=== PATIENT | male | born 1945 | race Caucasian/White ===

== ENCOUNTER 2020-11-13 10:37 | Inpatient (IN) | payer MEDICARE, BC ==
[~2020-11-13] VITALS: Ht 172.7 cm; Wt 77.2 kg
--- NOTE | 2020-11-13 10:54 | ED Neurological Problem ---
General Stated Complaint: POSS STROKE Source: patient, spouse Exam Limitations: no limitations History of Present Illness Date Seen by Provider: Nov 13, 2020 Time Seen by Provider: 10:39 Initial Comments Patient presents to the ER by private conveyance with his and chief complaint that he woke up this morning around 530 and was having some weakness and difficulty getting his right side of his body upper and lower extremity to work. No slurred speech, confusion. No recent illness, chest pain shortness of air. No history of heart attacks, peripheral arterial disease, stroke. He denies hypertension, hyperlipidemia or diabetes. He does not follow with a primary care provider. He is never had any problems and was supposed to switch over to Dr. Westfall after Juhi novoa and Blayne Franklin however he never went to follow-up with him. He does not take any medications supplements or vitamins. Allergies and Home Medications Allergies Coded Allergies: hydrocodone (Verified Adverse Reaction, Unknown, nausea, 11/13/20) Patient Home Medication List Home Medication List Reviewed: Yes Review of Systems Review of Systems Constitutional: No chills, No diaphoresis, No fever; weakness Eyes: Denies Blindness, Denies Blurred Vision Ears, Nose, Mouth, Throat: denies ear pain, denies ear discharge Respiratory: No cough, No short of breath Cardiovascular: No edema, No Hx of Intervention, No syncope, No vascular heart diseas Gastrointestinal: No abdominal pain, No nausea, No vomiting Genitourinary: No discharge, No dysuria Musculoskeletal: No back pain, No joint pain Skin: No change in color, No dryness Psychiatric/Neurological: Denies Anxiety, Denies Depressed All Other Systems Reviewed Negative Unless Noted: Yes Past Vomgoyp-Nsymfx-Tzlpqs Hx Patient Social History Alcohol Use: Denies Use Smoking Status: Never a Smoker Physical Exam Vital Signs Vital Signs - First Documented 11/13/20 10:53 Temp 36.6 Pulse 73 Resp 16 B/P (MAP) 163/95 (117) Pulse Ox 94 Capillary Refill : Height, Weight, BMI Height: '" Weight: lbs. oz. kg; BMI Method: General Appearance: WD/WN, mild distress HEENT: PERRL/EOMI, normal ENT inspection, TMs normal, pharynx normal Neck: non-tender, full range of motion, supple, normal inspection Respiratory: chest non-tender, lungs clear, normal breath sounds, no respiratory distress, no accessory muscle use Cardiovascular: normal peripheral pulses, regular rate, rhythm, no edema, no murmur Peripheral Pulses: 2+ Dorsalis Pedis (R), 2+ Left Dors-Pedis (L), 2+ Radial Pul ses (R), 2+ Radial Pulses (L) Gastrointestinal: normal bowel sounds, non tender, soft Extremities: normal range of motion, non-tender, normal inspection, no pedal edema, no calf tenderness, normal capillary refill Neurologic/Psychiatric: alert, normal mood/affect, oriented x 3, other (Weakness right upper and lower extremity 4 out of 5 strength compared to left upper and lower extremity. Subtle left facial droop around the lips on smile) Motor/Sensory: no sensory deficit Skin: normal color, warm/dry Stroke Onset of Symptoms Date of Onset of Symptoms: Nov 12, 2020 Time of Symptom Onset: 21:00 Onset of Symptoms: Yes Symptoms onset unknown: Yes NIH Stroke Scale Assessment Select: Initial Level of Consciousness: 0=Alert (0), Level of Consciousness- Questions: 0=Answers both month/age (0), LOC Commands: 0=Performs both tasks (0), Gaze: Normal (0), Visual Kauffman: 0=No visual loss (0), Facial Movement (Facial Paresis): 1=Minor paralysis (1), Motor Function-Arms Right: 1=Drift (1), Motor Function-Arms Left: 0=No drift (0), Motor Function-Legs Right: 1=Drift (1), Motor Function-Legs Left: 0=No drift (0), Limb Ataxia: 0=Absent (0), Sensory: 0=Normal:no loss (0), Best Language: 0=No aphasia (0), Dysarthria: 0=Normal (0), Extinction & Inattention: 0=No abnormality (0), Total: 3 Stroke Thrombolytic Exclusion Age 18 or Over: Yes History of CVA: No Uncontrolled Coagulation Defec: No Intracranial Hemorrhage: No Severe Hypertension: No GI or Bleed: No Subarachnoid Hemorrhage: No Intracranial Neoplasm/Aneurysm: No Oral Anticoagulants: No Surgery or Trauma: No Puncture of Non-Compressible V: No Recent CPR: No Diabetic Hemorrhagic Retinopat: No Organ Biopsy: No Recent Obstetric Delivery: No Glucose: No (113) Significant Hepatic Dysfunctio: No NIH Stoke Scale >22: No Bacterial Endocarditis: No Pericarditis: No Improving Symptoms: No Platelets: No TPA Contraindication: No Progress/Results/Core Measures Results/Orders Lab Results Laboratory Tests Test 11/13/20 10:49 11/13/20 10:52 Range/Units Glucometer 113 H 70-110 MG/DL White Blood Count 7.4 4.3-11.0 10^3/uL Red Blood Count 3.69 L 4.30-5.52 10^6/uL Hemoglobin 14.3 13.3-17.7 g/dL Hematocrit 40 40-54 % Mean Corpuscular Volume 108 H 80-99 fL Mean Corpuscular Hemoglobin 39 H 25-34 pg Mean Corpuscular Hemoglobin Concent 36 32-36 g/dL Red Cell Distribution Width 13.6 10.0-14.5 % Platelet Count 244 130-400 10^3/uL Mean Platelet Volume 9.5 9.0-12.2 fL Immature Granulocyte % (Auto) 0 % Neutrophils (%) (Auto) 58 42-75 % Lymphocytes (%) (Auto) 33 12-44 % Monocytes (%) (Auto) 7 0-12 % Eosinophils (%) (Auto) 2 0-10 % Basophils (%) (Auto) 0 0-10 % Neutrophils # (Auto) 4.3 1.8-7.8 10^3/uL Lymphocytes # (Auto) 2.4 1.0-4.0 10^3/uL Monocytes # (Auto) 0.5 0.0-1.0 10^3/uL Eosinophils # (Auto) 0.2 0.0-0.3 10^3/uL Basophils # (Auto) 0.0 0.0-0.1 10^3/uL Immature Granulocyte # (Auto) 0.0 0.0-0.1 10^3/uL Prothrombin Time 14.4 12.2-14.7 SEC INR Comment 1.1 0.8-1.4 Activated Partial Thromboplast Time 34 24-35 SEC D-Dimer 0.81 H 0.00-0.49 UG/ML Sodium Level 138 135-145 MMOL/L Potassium Level 5.0 3.6-5.0 MMOL/L Chloride Level 106 98-107 MMOL/L Carbon Dioxide Level 22 21-32 MMOL/L Anion Gap 10 5-14 MMOL/L Blood Urea Nitrogen 15 7-18 MG/DL Creatinine 0.91 0.60-1.30 MG/DL Estimat Glomerular Filtration Rate > 60 BUN/Creatinine Ratio 16 Glucose Level 116 H 70-105 MG/DL Calcium Level 8.5 8.5-10.1 MG/DL Corrected Calcium 8.3 L 8.5-10.1 MG/DL Total Bilirubin 1.1 H 0.1-1.0 MG/DL Aspartate Amino Transf (AST/SGOT) 40 H 5-34 U/L Alanine Aminotransferase (ALT/SGPT) 21 0-55 U/L Alkaline Phosphatase 40 40-136 U/L Troponin I < 0.028 <0.028 NG/ML Total Protein 7.6 6.4-8.2 GM/DL Albumin 4.2 3.2-4.5 GM/DL My Orders Orders - AMAIRANI VEGA Cbc With Automated Diff (11/13/20 10:47) Protime With Inr (11/13/20 10:47) Partial Thromboplastin Time (11/13/20 10:47) Comprehensive Metabolic Panel (11/13/20 10:47) Fibrin Degradation Products (11/13/20 10:47) Troponin I (11/13/20 10:47) Ua Culture If Indicated (11/13/20 10:47) Chest 1 View, Ap/Pa Only (11/13/20 10:47) Ekg Tracing (11/13/20 10:47) Nothing By Mouth (11/13/20 Lunch) Accucheck Stat ONCE (11/13/20 10:47) Ed Iv/Invasive Line Start (11/13/20 10:47) Ed Iv/Invasive Line Start (11/13/20 10:47) Vital Signs Stroke Patient Q15M (11/13/20 10:47) Ct Head Wo-R/O Stroke (11/13/20 10:47) O2 (11/13/20 10:47) Intake & Output 06,14,22 (11/13/20 10:47) Monitor-Rhythm Ecg Trace Only (11/13/20 10:47) Dysphagia Screening Tool (11/13/20 10:47) Post Thrombolytic Adminstratio (11/13/20 10:47) Lipid Panel (11/14/20 06:00) Ct Angio Head/Neck (11/13/20 11:30) Iohexol Injection (Omnipaque 350 Mg/Ml 1 (11/13/20 11:45) Received Contrast (Hold Metformin- Contr (11/13/20 11:45) Sodium Chloride Flush (Catheter Flush Sy (11/13/20 11:45) Ns (Ivpb) (Sodium Chloride 0.9% Ivpb Bag (11/13/20 11:45) Aspirin Chewable Tablet (Baby Aspirin Ch (11/13/20 13:15) Clopidogrel Tablet (Plavix Tablet) (11/13/20 13:15) Medications Given in ED Current Medications Medications Dose Ordered Sig/Zak Route Start Time Stop Time Status Last Admin Dose Admin Iohexol 100 ml ONCE ONCE IV 11/13/20 11:45 11/13/20 11:46 DC 11/13/20 11:50 75 ML Sodium Chloride 10 ml NEEDED PRN IV 11/13/20 11:45 11/13/20 11:51 10 ML Sodium Chloride 100 ml ONCE ONCE IV 11/13/20 11:45 11/13/20 11:46 DC 11/13/20 11:50 80 ML Vital Signs/I&O 11/13/20 10:53 Temp 36.6 Pulse 73 Resp 16 B/P (MAP) 163/95 (117) Pulse Ox 94 Progress Progress Note : Time: 10:55 Progress Note Blood glucose 113. Concern for ischemic stroke. We will send him down for a CT without IV contrast. Initial ECG Impression Date: Nov 13, 2020 Initial ECG Impression Time: 10:49 Initial ECG Rate: 73 Initial ECG Rhythm: Normal Sinus Initial ECG Intervals: Normal Initial ECG Impression: Normal Initial ECG Comparisson: No Previous ECG Available Comment Normal sinus rhythm without clinically relevant ST elevation or depression. Diagnostic Imaging Diagonstic Imaging: Xray Plain Films/CT/US/NM/MRI: chest Comments [facility], [place] NAME: SHAD DOWNEY MED REC#: [id number] PT STATUS: REG ER : 1945 PHYSICIAN: AMAIRANI VEGA MD ADMIT DATE: 11/13/20/ER Draft Date of Exam:11/13/20 CHEST 1 VIEW, AP/PA ONLY Indication: Dyspnea with new onset left-sided weakness. Comparison: None. Discussion: Single portable upright view of the chest was obtained. Atelectasis noted within the right lung base. Normal heart size. No consolidation, pleural fluid, or pneumothorax. No osseous abnormality. Impression: 1. Negative portable chest. Dictated on workstation # [id number] Dict: 11/13/20 1109 Trans: 11/13/20 1111 [facility] [id number] Interpreted by: VEE JUSTIN MD Electronically signed by: Reviewed: Reviewed by Pr Diagonstic Imaging: CT Plain Films/CT/US/NM/MRI: head Comments NAME: SHAD DOWNEY [facility] REC#: [id number] PT STATUS: REG ER : 1945 PHYSICIAN: AMAIRANI VEGA MD ADMIT DATE: 11/13/20/ER Draft Date of Exam:11/13/20 CT HEAD WO-R/O STROKE PROCEDURE: CT head wo r/o stroke. TECHNIQUE: Multiple contiguous axial images were obtained through the brain without the use of intravenous contrast. Auto Exposure Controls were utilized during the CT exam to meet ALARA standards for radiation dose reduction. Indication: New onset left-sided weakness, altered mental status. Comparison: None. Discussion: No intracranial hemorrhage, mass, midline shift, or hydrocephalus. The ventricles and sulci are normal size and configuration for age. The visualized orbits, mastoid air cells, and calvarium are unremarkable. Mucosal thickening noted within the sinuses consistent with chronic sinusitis. No air-fluid level. Impression: 1. No acute intracranial abnormality identified. Dictated on workstation # [id number] Dict: 11/13/20 1105 Trans: 11/13/20 1108 [facility] [id number] Interpreted by: VEE JUSTIN MD Electronically signed by: Reviewed: Reviewed by Pr Diagonstic Imaging: CT (angiogram) Plain Films/CT/US/NM/MRI: head (neck) Comments [facility], [place] NAME: NASREEN,SHAD Brown [facility] REC#: [id number] PT STATUS: REG ER : 1945 PHYSICIAN: AMAIRANI VEGA MD ADMIT DATE: 11/13/20/ER Draft Date of Exam:11/13/20 CT ANGIO HEAD/NECK PROCEDURE: CT angiography of the head and CT angiography of the neck with and without contrast. TECHNIQUE: Contiguous noncontrast images were obtained from the skull base through the vertex. After intravenous contrast administration, helical CT angiography of the neck was performed. Source data was reformatted into 3D MIP projections. Delayed post contrast acquisition was also obtained. Auto Exposure Controls were utilized during the CT exam to meet ALARA standards for radiation dose reduction. Indication: New onset right-sided weakness, altered mental status. Comparison: Noncontrasted CT earlier today. Discussion: CTA head: The right internal and external carotid artery is significantly larger than the left. The left A1 segment is markedly diminutive though does appear to be present though is poorly evaluated given its very small size. Mild intracranial arterial calcifications are noted with no high-grade stenosis identified. No major vessel cut off, aneurysm, or vascular malformation. Visualized venous structures are unremarkable. CTA neck: The arch has conventional branch configuration. The vertebral arteries are left dominant. The carotid arteries bifurcate midneck. The right carotid bifurcation contains mild atherosclerotic plaque with less than 50% stenosis identified within the origin of the right internal carotid artery. The left internal carotid artery is again diminutive which is likely secondary to focal atherosclerotic plaque at the origin contributing to at least 80% stenosis. The common carotid arteries are otherwise patent. The lung apices are unremarkable. The soft tissues of the neck are unremarkable. Shotty reactive-appearing adenopathy is present bilaterally. No acute osseous abnormality. Impression: 1. 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 The remainder of the left internal carotid artery is diminutive as compared to the right. 2. No intracranial major vessel cut off, aneurysm, or vascular malformation. Dictated on workstation # [id number] Dict: 11/13/20 1202 Trans: 11/13/20 1217 [facility] [id number] Interpreted by: VEE JUSTIN MD Electronically signed by: Reviewed: Reviewed by Me Consults : Consults Notes 1120: Dr Subramanian: Neurology on-call for stroke at [facility]. He recommends the patient is outside the window for any benefit from TPA. He would however get a CT angiogram of the head and neck and if it is clear then continue to work-up locally for ischemic stroke. 1255: Discussed the 80% atherosclerotic stenosis in the left ICA with Dr. Quintana and he does not feel that anything specifically need to be done right now but he does need to follow-up with someone for potentially CEA in the next week or 2. Departure Communication (Admissions) Time/Spoke to Admitting Phy: 12:45 Discussed the case with Dr. Wadsworth and she agrees with admission for CVA work-up. Impression Primary Impression: CVA (cerebral vascular accident) Qualified Codes: I63.9 - Cerebral infarction, unspecified Disposition: ADMITTED INPATIENT Condition: Stable Admissions Decision to Admit Reason: Admit from ER (General) Decision to Admit/Date: Nov 13, 2020 Time/Decision to Admit Time: 12:15 Departure-Patient Inst. Referrals: NO,LOCAL PHYSICIAN (PCP/Family) Primary Care Physician AMAIRANI VEGA Nov 13, 2020 10:53
[2020-11-13 11:00] LABS: BASOPHILS % (AUTO) 0 % (0-10); EOSINOPHILS # (AUTO) 0.2 10^3/uL (0.0-0.3); EOSINOPHILS % (AUTO) 2 % (0-10); HEMATOCRIT 40 % (40-54); HEMOGLOBIN 14.3 g/dL (13.3-17.7); LYMPHOCYTES # (AUTO) 2.4 10^3/uL (1.0-4.0); LYMPHOCYTES % (AUTO) 33 % (12-44); MEAN CORPUSCULAR HEMOGLOBIN 39 pg (25-34); MEAN CORPUSCULAR HGB CONC 36 g/dL (32-36); MEAN CORPUSCULAR VOLUME 108 fL (80-99); MEAN PLATELET VOLUME 9.5 fL (9.0-12.2); MONOCYTES # (AUTO) 0.5 10^3/uL (0.0-1.0); MONOCYTES % (AUTO) 7 % (0-12); NEUTROPHILS # (AUTO) 4.3 10^3/uL (1.8-7.8); NEUTROPHILS % (AUTO) 58 % (42-75); PLATELET COUNT 244 10^3/uL (130-400); WHITE BLOOD COUNT 7.4 10^3/uL (4.3-11.0)
[2020-11-13 11:08] LABS: ALBUMIN 4.2 GM/DL (3.2-4.5); CHLORIDE 106 MMOL/L (98-107); SODIUM 138 MMOL/L (135-145)
--- NOTE | 2020-11-13 11:08 | Diagnostic Imaging Report ---
PROCEDURE: CT head wo r/o stroke. TECHNIQUE: Multiple contiguous axial images were obtained through the brain without the use of intravenous contrast. Auto Exposure Controls were utilized during the CT exam to meet ALARA standards for radiation dose reduction. Indication: New onset left-sided weakness, altered mental status. Comparison: None. Discussion: No intracranial hemorrhage, mass, midline shift, or hydrocephalus. The ventricles and sulci are normal size and configuration for age. The visualized orbits, mastoid air cells, and calvarium are unremarkable. Mucosal thickening noted within the sinuses consistent with chronic sinusitis. No air-fluid level. Impression: 1. No acute intracranial abnormality identified. Dictated by: Dictated on workstation # [id number]
[2020-11-13 11:10] LABS: CALCIUM 8.5 MG/DL (8.5-10.1)
[2020-11-13 11:11] LABS: GLUCOSE 116 MG/DL (70-105); TOTAL PROTEIN 7.6 GM/DL (6.4-8.2)
--- NOTE | 2020-11-13 11:11 | Diagnostic Imaging Report ---
Indication: Dyspnea with new onset left-sided weakness. Comparison: None. Discussion: Single portable upright view of the chest was obtained. Atelectasis noted within the right lung base. Normal heart size. No consolidation, pleural fluid, or pneumothorax. No osseous abnormality. Impression: 1. Negative portable chest. Dictated by: Dictated on workstation # [id number]
[2020-11-13 11:12] LABS: BILIRUBIN,TOTAL 1.1 MG/DL (0.1-1.0); CARBON DIOXIDE 22 MMOL/L (21-32)
[2020-11-13 11:14] LABS: ALKALINE PHOSPHATASE 40 U/L (40-136); CREATININE SERUM 0.91 MG/DL (0.60-1.30); GFR ESTIMATED > 60
[2020-11-13 11:15] LABS: BUN/CREATININE RATIO 16
[2020-11-13 11:17] LABS: ALANINE AMINOTRANSFERASE 21 U/L (0-55)
[2020-11-13] MEDS ORDERED: IOHEXOL 350 MG/ML 100 ML (OMNIPAQUE 350) VIAL IV ONE (11:45)
[2020-11-13] MEDS ORDERED: NS 100 ML (IVPB) BAG IV ONE (11:45)
[2020-11-13] MEDS ORDERED: HOLD METFORMIN - RECEIVED CONTRAST 20 ML VIAL IV SCH (11:45)
[2020-11-13] MEDS ORDERED: CATHETER FLUSH 10 ML SYR IV PRN (11:45)
[2020-11-13 11:58] LABS: FIBRIN DEGRADATION PRODUCTS 0.81 UG/ML (0.00-0.49); INR 1.1 (0.8-1.4); PROTHROMBIN TIME PATIENT 14.4 SEC (12.2-14.7)
--- NOTE | 2020-11-13 12:17 | Diagnostic Imaging Report ---
PROCEDURE: CT angiography of the head and CT angiography of the neck with and without contrast. TECHNIQUE: Contiguous noncontrast images were obtained from the skull base through the vertex. After intravenous contrast administration, helical CT angiography of the neck was performed. Source data was reformatted into 3D MIP projections. Delayed post contrast acquisition was also obtained. Auto Exposure Controls were utilized during the CT exam to meet ALARA standards for radiation dose reduction. Indication: New onset right-sided weakness, altered mental status. Comparison: Noncontrasted CT earlier today. Discussion: CTA head: The right internal and external carotid artery is significantly larger than the left. The left A1 segment is markedly diminutive though does appear to be present though is poorly evaluated given its very small size. Mild intracranial arterial calcifications are noted with no high-grade stenosis identified. No major vessel cut off, aneurysm, or vascular malformation. Visualized venous structures are unremarkable. CTA neck: The arch has conventional branch configuration. The vertebral arteries are left dominant. The carotid arteries bifurcate midneck. The right carotid bifurcation contains mild atherosclerotic plaque with less than 50% stenosis identified within the origin of the right internal carotid artery. The left internal carotid artery is again diminutive which is likely secondary to focal atherosclerotic plaque at the origin contributing to at least 80% stenosis. The common carotid arteries are otherwise patent. The lung apices are unremarkable. The soft tissues of the neck are unremarkable. Shotty reactive-appearing adenopathy is present bilaterally. No acute osseous abnormality. Impression: 1. 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 The remainder of the left internal carotid artery is diminutive as compared to the right. 2. No intracranial major vessel cut off, aneurysm, or vascular malformation. Dictated by: Dictated on workstation # [id number]
[2020-11-13] MEDS ORDERED: ASPIRIN 81 MG CHEW (CHILDREN'S ASA) PO ONE (13:15)
[2020-11-13] MEDS ORDERED: CLOPIDOGREL 300 MG (PLAVIX) TABLET PO ONE (13:15)
--- NOTE | 2020-11-13 13:32 | History & Physical-Hospitalist ---
CELYSANTINO, 11/13/20 1331: History of Present Illness HPI/Chief Complaint Mr. Ledbetter is a 75-year-old male who presented to the [facility] ED for right- sided weakness. At 0530 this am, he noted that his right-side would not "listen" to instruction. His said he had a "different gait" this morning and was falling into the cruz of their home. Last known well time was the night prior before bed. He also admits to extreme sleepiness and headache. He denies any chest pain, shortness of breath, blurred vision, difficulty swallowing. He does admit to nausea without vomiting. also states he has been having increasing number of headaches recently. Source: patient, family Date Seen 11/13/20 Time Seen by a Provider: 13:00 Attending Physician PCP No,Local Physician Referring Physician Date of Admission Home Medications & Allergies Home Medications Reviewed patient Home Medication Reconciliation performed by pharmacy medication reconciliations organic extractions technician and/or nursing. Patients Allergies have been reviewed. Allergies Allergies Coded Allergies hydrocodone (Verified Adverse Reaction, Unknown, nausea, 11/13/20) Past Xyybmbi-Zqshhw-Izaoqj Hx Patient Social History Marrital Status: Alcohol Use: Denies Use Recreational Drug Use: No Smoking Status: Never a Smoker Recent Foreign Travel: No Contact w/other who traveled: No Recent Hopitalizations: No Recent Infectious Disease Expo: No Seasonal Allergies Seasonal Allergies: No Past Medical History Surgeries: Orthopedic (L hand), Tonsillectomy Neurological: Headaches /Migraines Cancer: Skin Did You Recieve Any Treatments: Yes What Type of Treatment Did You: Surgical Intervention History of Blood Disorders: No Family History Cancer, CVA Review of Systems Constitutional: diaphoresis, weakness EENTM: dental problems ( states halitosis); No blurred vision Respiratory: No cough, No short of breath Cardiovascular: No chest pain, No palpitations Gastrointestinal: No abdominal pain; nausea Genitourinary: No dysuria, No hematuria Musculoskeletal: No joint pain, No muscle pain Skin: No dryness, No lesions Psychiatric/Neurological: Headache; Denies Tremors Physical Exam Physical Exam Vital Signs Vital Signs - First Documented 11/13/20 11/13/20 10:53 15:50 Temp 36.6 Pulse 73 Resp 16 B/P (MAP) 163/95 (117) Pulse Ox 94 O2 Delivery Room Air Capillary Refill : Less Than 3 Seconds Height, Weight, BMI Height: '" Weight: lbs. oz. kg; 26.00 BMI Method: General Appearance: No Apparent Distress, WD/WN HEENT: PERRL/EOMI Neck: Non Tender, Supple Respiratory: Lungs Clear, Normal Breath Sounds Cardiovascular: Regular Rate, Rhythm, No Murmur Gastrointestinal: Normal Bowel Sounds, Non Tender, Soft Extremity: Normal Capillary Refill, Pedal Edema Neurologic/Psychiatric: Alert, Oriented x3, senior linux unix engineer II-XII Norm as Tested; No Faci al Droop; Motor Weakness (+3/5 right-sided muscle weakness; +5/5 left-sided); No Sensory Deficit Skin: Normal Color, Warm/Dry Lymphatic: No Adenopathy Results Results/Procedures Labs Laboratory Tests 11/13/20 10:52 Patient resulted labs reviewed. Imaging: Reviewed Imaging Report Assessment/Plan Admission Diagnosis Cerebrovascular accident Right-sided weakness * CT head revealed no acute pathology * CTA of head/neck revealed at least 80% stenosis of left internal carotid * Per ED note, neurology at stated too late for tPA; no intervention at this time but to follow-up with someone for potentially CEA in the next week or 2 * EKG showed NSR without ST changes * Order MRI brain, echo * D-dimer 0.81 * Lipid panel pending - start atorvastatin 80mg * PT/OT * Start aspirin and Plavix * Permissive hypertension following CVA Diet: npo, pending swallow study PPx: lovenox Dispo: likely >2 midnights for therapies; social work consult for rehab pl acement if necessary Clinical Quality Measures Stroke: Date of last known well: Nov 12, 2020 Time of last known well: 21:00 Symptoms onset unknown: Yes BARBIE WADSWORTH MD 11/13/20 1408: Past Daozksl-Nfvmal-Vyzwan Hx Past Med/Social Hx: Reviewed Nursing Past Med/Soc Hx Assessment/Plan Admission Diagnosis Patient presented with right sided weakness that he woke up with this morning. Has significant deficits in right side with both weakness and coordination. No previous history of stroke, HTN, HLD, or CAD but has not see a physician in a couple of years. He was outside of the window for TPA upon presentation and CTA was negative for large vessel occlusion. Dr Burciaga in the ER discussed with [facility] Stroke Neruology who recommended conservative management but outpatient follow up with vascular surgery for 80% left carotid stenosis. Will check lipid panel in the AM and start on antiplatelet therapy. PT/OT consulted. May need IRU upon discharge pending course. Admission Status: Inpatient Order (span 2 midnights) Reason for Inpatient Admission: see above Diagnosis/Problems Diagnosis/Problems (1) CVA (cerebral vascular accident) Status: Acute Qualifiers: CVA mechanism: unspecified Qualified Codes: I63.9 - Cerebral infarction, unspecified (2) Elevated blood pressure reading Supervisory-Addendum Brief Verification & Attestation Participated in pt care: history, MDM, physical Personally performed: exam, history, MDM, supervision of care Care discussed with: Medical Student Procedures: n/a Results interpretation: Verified all documentation Verification and Attestation of Medical Student E/M Service A medical student performed and documented this service in my presence. I reviewed and verified all information documented by the medical student and made modifications to such information, when appropriate. I personally performed the physical exam and medical decision making. Barbie Wadsworth, Nov 13, 2020,14:03 SANTINO TA, Nov 13, 2020 13:31 BARBIE WADSWORTH MD Nov 13, 2020 14:08
[2020-11-13] MEDS ORDERED: ACETAMINOPHEN 325 MG TABLET PO PRN (15:00)
[2020-11-13] MEDS ORDERED: ONDANSETRON 4 MG/2 ML (SDV) Z0FRAN IVP PRN (15:00)
[2020-11-13 15:50] VITALS: BP 142/82
[2020-11-13 20:00] VITALS: BP 123/72
[2020-11-13 22:15] LABS: BILIRUBIN,URINE NEGATIVE (NEGATIVE); CLARITY,URINE SL CLOUDY; COLOR,URINE YELLOW; GLUCOSE, URINE (UA) NEGATIVE (NEGATIVE); KETONES,URINE NEGATIVE (NEGATIVE); LEUKOCYTE ESTERASE ,URINE NEGATIVE (NEGATIVE); NITRITE,URINE NEGATIVE (NEGATIVE); PH,URINE 7.5 (5-9); PROTEIN,URINE NEGATIVE (NEGATIVE)
[2020-11-13 22:22] LABS: BACTERIA,URINE NEGATIVE /HPF; SQUAMOUS EPITHELIAL CELL,UR RARE /HPF
[2020-11-14] VITALS (7 sets, daily range): BP systolic 105–137; BP diastolic 55–78
[2020-11-14 05:46] LABS: TRIGLYCERIDES 72 MG/DL (<150); VLDL CHOLESTEROL 14 MG/DL (5-40)
[2020-11-14 05:51] LABS: CHOLESTEROL 161 MG/DL (< 200); HDL CHOLESTEROL 33 MG/DL (40-60)
--- NOTE | 2020-11-14 09:40 | Progress Note - Hospitalist ---
CELYSANTINO, 11/14/20 0940: Subjective HPI/CC On Admission Date Seen by Provider: Nov 14, 2020 Time Seen by Provider: 10:09 Mr. Ledbetter is a 75-year-old male who presented to the [facility] ED for right- sided weakness. At 0530 this am, he noted that his right-side would not "listen" to instruction. His said he had a "different gait" this morning and was falling into the cruz of their home. Last known well time was the night prior before bed. He also admits to extreme sleepiness and headache. He denies any chest pain, shortness of breath, blurred vision, difficulty swallowing. He does admit to nausea without vomiting. also states he has been having increasing number of headaches recently. Subjective/Events-last exam Mr. Ledbetter was seen in f/u for right-sided weakness and likely CVA. Eating breakfast during interview. States he is still feeling pretty sleepy and does not think his right-sided weakness is better. However, has noticed mild improvement. Echo completed today. Pt and family had questions regarding MRI and further testing for tomorrow. Objective Exam Vital Signs Vital Signs Date Time Temp Pulse Resp B/P (MAP) Pulse Ox O2 Delivery O2 Flow Rate FiO2 11/14/20 08:00 Room Air 11/14/20 08:00 35.4 70 16 105/69 (81) 93 Capillary Refill : Less Than 3 Seconds General Appearance: No Apparent Distress, WD/WN HEENT: PERRL/EOMI Neck: Non Tender, Supple Respiratory: Lungs Clear, Normal Breath Sounds Cardiovascular: Regular Rate, Rhythm, No Murmur Gastrointestinal: Normal Bowel Sounds, Non Tender, Soft Extremity: Normal Capillary Refill, No Calf Tenderness Neurologic/Psychiatric: Alert, Oriented x3, sieve grader tender II-XII Norm as Tested, Abnormal Cerebellar Tests (improved lxywno-ym-jevh testing on right side); No Motor Weakness, No Sensory Deficit Skin: Normal Color, Warm/Dry Lymphatic: No Adenopathy Results/Procedures Lab Laboratory Tests 11/13/20 10:52 Patient resulted labs reviewed. Imaging: Reviewed Imaging Report Assessment/Plan Assessment and Plan Assess & Plan/Chief Complaint Cerebrovascular accident Right-sided weakness * CT head revealed no acute pathology * CTA of head/neck revealed at least 80% stenosis of left internal carotid * Per ED note, neurology at stated too late for tPA; no intervention at this time but to follow-up with someone for potentially CEA in the next week or 2 * EKG showed NSR without ST changes * Order MRI brain for tomorrow, 11/15 * Echo completed, revealed EF 70-75%, abnormal LV relaxation (grade 1 diastolic dysfunction) * Lipid panel normal except for low HDL at 33 * Continue atorvastatin 80mg * PT/OT * Continue aspirin and Plavix * Permissive hypertension following CVA Diet: Na 2g PPx: lovenox DNR/DNI Dispo: likely >2 midnights for therapies; social work consult for rehab placement if necessary Clinical Quality Measures Stroke: Date of last known well: Nov 12, 2020 Time of last known well: 21:00 Symptoms onset unknown: Yes BARBIE WADSWORTH MD 11/14/20 1227: Assessment/Plan Assessment and Plan Assess & Plan/Chief Complaint Patient doing much better today. Coordination much improved though not quite back to normal. MRI ordered for tomorrow as not available on the weekend. Continue on high dose statin and antiplatelet therapy. PT/OT to see tomorrow as also not available on a Sunday. Add Lovenox for DVT ppx. Clinical Quality Measures Stroke: Symptoms onset unknown: Yes Quality Measures-Stroke Pt: Antithrombotic therapy by EOD 2, Assessed for Rehab (PT,OT,ARU,etc) (ordered), Lipid panel ordered, VTE Supervisory-Addendum Brief Verification & Attestation Participated in pt care: history, MDM, physical Personally performed: exam, history, MDM, supervision of care Care discussed with: Medical Student Procedures: n/a Results interpretation: Verified all documentation Verification and Attestation of Medical Student E/M Service A medical student performed and documented this service in my presence. I reviewed and verified all information documented by the medical student and made modifications to such information, when appropriate. I personally performed the physical exam and medical decision making. Barbie Wadsworth, Nov 14, 2020,12:27 SANTINO TA, Nov 14, 2020 09:40 BARBIE WADSWORTH MD Nov 14, 2020 12:27
[2020-11-14] MEDS: CLOPIDOGREL 75 MG (PLAVIX) TABLET PO SCH (10:09)
[2020-11-14] MEDS: ASPIRIN E.C. 325 MG (ECOTRIN) TABLET PO SCH (10:09)
[2020-11-14] MEDS: DOCUSATE SODIUM 100 MG (COLACE) CAP PO SCH (10:09)
[2020-11-14] MEDS: FLUTICASONE NASAL SPRAY (FLONASE) 16 GM BTL NS SCH (12:39)
[2020-11-14] MEDS ORDERED: ENOXAPARIN 40 MG/0.4 ML (LOVENOX) SYR SQ SCH (18:30)
[2020-11-14] MEDS ORDERED: ENOXAPARIN 40 MG/0.4 ML (LOVENOX) SYR ONE (20:03)
[2020-11-15 03:39] VITALS: BP 124/70
[2020-11-15 08:00] VITALS: BP 126/72
[2020-11-15] MEDS: ASPIRIN E.C. 325 MG (ECOTRIN) TABLET PO SCH (08:20)
[2020-11-15] MEDS: CLOPIDOGREL 75 MG (PLAVIX) TABLET PO SCH (08:20)
[2020-11-15] MEDS: DOCUSATE SODIUM 100 MG (COLACE) CAP PO SCH (08:20)
--- NOTE | 2020-11-15 08:54 | Diagnostic Imaging Report ---
PROCEDURE: MR imaging of the brain without contrast. TECHNIQUE: Multiplanar, multisequence MR imaging of the brain was performed without contrast. INDICATION: Right-sided weakness. COMPARISON: CT head and CTA head and neck 11/13/2020. FINDINGS: Patchy areas of restricted water diffusion in the left occipital and posterior parietal lobes located primarily within the border zone region between the left MCA and JET PILOT. There is also a couple punctate foci of restricted water diffusion in the lateral left frontal lobe posterior. No evidence of hemorrhagic conversion. Mild additional nonspecific T2 hyperintensities in the supratentorial white matter compatible with chronic small vessel ischemic change. Normal morphology including the major midline structures, sella, posterior fossa and cerebellar pontine angle. Normal intracranial flow voids. No hydrocephalus or extra-axial fluid collections. The orbits are unremarkable in this nondedicated exam. Mucosal thickening in the ethmoid sinuses. The mastoids are clear. Normal bone marrow signal. IMPRESSION: 1. Patchy regions of acute to subacute infarct primarily in the left watershed region between the left middle and posterior cerebellar artery distributions. There are couple additional foci of infarct in the lateral left frontal lobe. 2. No evidence of intracranial hemorrhage. Dictated by: Dictated on workstation # [id number]
[2020-11-15] MEDS: FLUTICASONE NASAL SPRAY (FLONASE) 16 GM BTL NS SCH (09:00)
--- NOTE | 2020-11-15 10:15 | Physical Therapy Evaluation ---
PT Evaluation-General Medical Diagnosis Admission Date Nov 13, 2020 at 13:10 Medical Diagnosis: CVA Onset Date: Nov 13, 2020 Therapy Diagnosis Therapy Diagnosis: debility/weakness Precautions Precautions/Isolations: Fall Prevention, Standard Precautions Weight Bear Status Right Lower Extremity: Right Weight Bearing/Tolerated Left Lower Extremity: Left Weight Bearing/Tolerated Referral Physician: Ananth Reason for Referral: Evaluation/Treatment Medical History Additional Medical History unremarkable Current History ER secondary to right side weakness Reviewed History: Yes Social History Home: Single Level Current Living Status: Spouse Entry Into Home: Stairs Without Railing PT Steps Into Home: 4 Prior Prior Level of Function SCALE: Activities may be completed with or without assistive devices. 9-Bfshohiexi-zmumgwj completes the activity by him/herself with no assistance from a helper. 5-Set-up or Clean-up Assistance-helper sets up or cleans up; patient completes activity. [place] assists only prior to or following the activity. 4-Supervision or Touching Assistance-helper provides verbal cues and/or touching/steadying and/or contact guard assistance as patient completes activity. Assistance may be provided throughout the activity or intermittently. 3-Partial/Moderate Assistance-helper does LESS THAN HALF the effort. [place] lifts, holds or supports trunk or limbs, but provides less than half the effort. 2-Substantial/Maximal Assistance-helper does MORE THAN HALF the effort. [place] lifts or holds trunk or limbs and provides more than half the effort. 0-Ahbofmgoz-oklivu does ALL the effort. Patient does none of the effort to complete the activity. Or, the assistance of 2 or more helpers is required for the patient to complete the activity. If activity was not attempted, code reason: 7-Patient Refused. 9-Not Applicable-not attempted and the patient did not perform the activity before the current illness, exacerbation or injury. 10-Not Attempted due to Environmental Limitations-(lack of equipment, weather restraints, etc.). 88-Not Attempted due to Medical Conditions or Safety Concerns. Bed Mobility: 6 Transfers (B,C,W/C): 6 Gait: 6 Stairs: 6 Wheelchair Mobility: 9 Indoor Mobility (Ambulation): Independent Stairs: Independent Prior Devices Use: None PT Evaluation-Current Subjective Patient agrees to PT. He reports his right side "feels weird". Objective Patient Orientation: Normal For Age ROM/Strength ROM Lower Extremities bilateral LE WFL Strength Lower Extremities right knee flexion 3-/5; extension 3/5; DF/PF 3/5; hip flexion 3-/5; left LE 4+/5 grossly Integumentary/Posture Integumentary refer to nursing notes Bowel Incontinence: No Bladder Incontinence: No Posture WFL Neuromuscular (Tone, Coordination, Reflexes) right LE ataxia with activity due to fatigue Sensory Vision: Functional Hearing: Functional Sensation Right Lower Extremit: Intact Sensation Left Lower Extremity: Intact Transfers Roll Left to Right (QC): 6 Sit to Lying (QC): 6 Lying to Sitting/Side of Bed(Q: 6 Sit to Stand (QC): 4 Chair/Vfx-zv-Qhtjn Xfer(QC): 4 Toilet Transfer (QC): 4 CGA for safety Gait Does the Patient Walk?: Yes Mode of Locomotion: Walk Anticipated Mode of Locomotion: Walk Walk 10 feet (QC): 4 Walk 50 ft with 2 Turns(QC): 4 Walk 150 ft (QC): 4 Distance: 300' Gait Assistive Device: FWW Comments/Gait Description right LE ataxia due to increase fatigue with distance Balance Sitting Static: Normal Sitting Dynamic: Normal Standing Static: Fair Standing Dynamic: Fair Assessment/Needs 75 y.o. male, will benefit from skilled PT to address functional strength and mobility to improve current LOF to safely return to home at maximum LOF. Rehab Potential: Fair PT Senior Care Goals Senior Care Goals PT Director Of Volunteer Services Goals Time Frame: Nov 26, 2020 Roll Left & Right (QC): 6 Sit to Lying (QC): 6 Lying-Sitting on Side/Bed(QC): 6 Sit to Stand (QC): 6 Chair/Qoo-ol-Xceig Xfer(QC): 6 Toilet Transfer (QC): 6 Car Transfer (QC): 6 Does the Patient Walk: Yes Walk 10 feet (QC): 6 Walk 50ft with 2 Turns (QC): 6 Walk 150 ft (QC): 6 Walking 10ft on Uneven Surface: 6 1 Step (curb) (QC): 6 4 Steps (QC): 6 PT Plan Problem List Problem List: Activity Tolerance, Functional Strength, Safety, Balance, Gait, Transfer Treatment/Plan Treatment Plan: Continue Plan of Care Treatment Plan: Bed Mobility, Education, Functional Activity David, Functional Strength, Gait, Safety, Therapeutic Exercise, Transfers Treatment Duration: Nov 26, 2020 Frequency: 6 times per week Estimated Hrs Per Day: .25 hour per day Patient and/or Family Agrees t: Yes Discharge Recommendations Therapy Discharge Recommendati: Home & Family Time/GCodes Time In: 846 Time Out: 900 Total Billed Treatment Time: 14 [facility] PT Nov 15, 2020 10:15
[2020-11-15 12:00] VITALS: BP 139/79
[2020-11-15] MEDS ORDERED: ATOR80TA76 PO (13:04)
[2020-11-15] MEDS ORDERED: CLOP75TA28 PO (13:04)
[2020-11-15] MEDS ORDERED: ASPI-1238 PO (13:04)
--- NOTE | 2020-11-15 13:27 | Discharge Summary ---
Discharge Summary Reconcile Patient Problems Problems Reviewed?: Yes Instructions for Patient [facility], Assessment/Instructions Take medications as prescribed. You're being started on aspirin and Plavix due to stroke and carotid stenosis. You're being started on Lipitor for cholesterol. You need to follow-up at for your carotid stenosis. You need to establish care with Dr. Westfall. Return with worsening weakness, slurred speech, or if you feel like you're getting worse. Physician to follow Patient: Khoi Discharge Diet for Home: Low Sodium Diet Hospital Course Date of Admission: Nov 13, 2020 at 13:10 Admission Diagnosis : Acute ischemic stroke Family Physician/Provider: Alexandro Blakely Physician Date of Discharge: 11/15/20 Discharge Diagnosis: Acute ischemic stroke Hospital Course: Juanjose Ledbetter Sr is a 75-year-old male who was admitted with strokelike symptoms. He underwent a CT scan which revealed no apparent lesions. He underwent a CTA which revealed left-sided carotid stenosis. An MRI was performed which revealed a left-sided middle/posterior cerebral artery watershed infarct. There is also some infarction of the left frontal lobe. He was started on aspirin and Plavix. He was started on Lipitor for dyslipidemia. He was set up with home health care for ongoing therapies. He will establish care with a new primary care physician, Dr. Hao Westfall. He will need to follow-up at vascular surgery for likely intervention on his carotid stenosis. Labs and Pending Lab Test: Home Meds Active Clopidogrel (Clopidogrel Bisulfate) 75 Mg Tablet 75 Mg PO DAILY 30 Days Atorvastatin Calcium 80 Mg Tablet 80 Mg PO DAILY 30 Days Aspirin EC (Aspirin) 81 Mg Tablet. 81 Mg PO DAILY 30 Days Patient Allergies: Coded Allergies: peach (Verified Allergy, Unknown, 11/15/20) watermelon (Verified Allergy, Unknown, 11/15/20) hydrocodone (Verified Adverse Reaction, Unknown, nausea, 11/13/20) Home Health Need/Face to Face Date of Face to Face: Nov 15, 2020 Clinical Findings: Generalized weakness and fatigue, Instability, Muscle weakness, Unsteady gait I have seen Pt dpon-lr-tayu: Yes Discharged To: Home Diagnosis/Conditions: Acute ischemic stroke Problems/Diagnosis/Condition: (1) Acute ischemic stroke Patient is Homebound due to: Amina fall risk due to instabilty, Muscle weakness Homebound Status Due to the above stated illness, injury or surgical procedure (medical co ndition or diagnosis) and associated clinical findings, the patient is homebound because of his/her inability to leave home except with aid of a supportive device and/or person AND leaving the home requires a considerable and taxing effort or is medically contraindicated. Pt req the following assistanc: Aid of another person Home Health Nursing Orders Home Health Services Order: Nursing Services, [facility] [employer] Cashier-Evaluate & Treat, Physical Therapy-Evaluate & Treat Home Health Infusion Therapy Line Start Date: Nov 13, 2020 Therapy Orders Therapy Orders: OT (must have SN or PT order), Physical Therapy Therapy Specific Orders: Eval assistive deivces, Teach enviro modifications/safety, Gait training, Increase strength/endurance Certify Stmt I certify that this patient is under my care and that I, a nurse practitioner or a physician; a assistant basketball coach working with me, had a face to face encounter that - meets the physician face to face encounter requirements with this patient as dated. Discharge Physical Exam General: Alert, Oriented X3, Cooperative, No Acute Distress HEENT: Atraumatic, EOMI, Mucous Memb Moist/[place] Lungs: Clear to Auscultation, Normal Air Movement Heart: Regular Rate, Normal S1, Normal S2, No Murmurs Abdomen: Normal Bowel Sounds, Soft, No Tenderness Extremities: No Edema, No Tenderness/Swelling Skin: No Rashes, No Significant Lesion Neuro: Other (motor weakness right hand and leg, right hand dysmetria and dysdiadokinesia) Psych/Mental Status: Mental Status NL, Mood NL OLIVIER LEUNG MD Nov 15, 2020 13:16
--- NOTE | 2020-11-15 15:38 | Occupational Therapy Eval ---
OT Evaluation-General/PLF Medical Diagnosis Admission Date Nov 13, 2020 at 13:10 Medical Diagnosis: CVA with right hemiparesis Onset Date: Nov 13, 2020 Therapy Diagnosis Therapy Diagnosis: Weakness/decreased ADl skills Precautions Precautions/Isolations: Fall Prevention, Standard Precautions Weight Bear Status Weight Bearing Restriction: Weight Bearing/Tolerated Referral Physician: Ananth Referral Reason: Activity Tolerance, Self Care, Evaluation/Treatment, Strengthening/ROM Medical History Current History Pt. sustained CVA at home. Began having difficulty with ambulation and mobility. Reviewed History: Yes Social History Home: Single Level Current Living Status: Spouse Entry Into Home: Stairs Without Railing Steps Into Home: 4 ADL-Prior Level of Function SCALE: Activities may be completed with or without assistive devices. 5-Xuxrikylao-ntcbdjx completes the activity by him/herself with no assistance from a helper. 5-Set-up or Clean-up Assistance-helper sets up or cleans up; patient completes activity. [place] assists only prior to or following the activity. 4-Supervision or Touching Assistance-helper provides verbal cues and/or touching/steadying and/or contact guard assistance as patient completes activ ity. Assistance may be provided throughout the activity or intermittently. 3-Partial/Moderate Assistance-helper does LESS THAN HALF the effort. [place] lifts, holds or supports trunk or limbs, but provides less than half the effort. 2-Substantial/Maximal Assistance-helper does MORE THAN HALF the effort. [place] lifts or holds trunk or limbs and provides more than half the effort. 8-Uqdahgiup-ufafej does ALL the effort. Patient does none of the effort to complete the activity. Or, the assistance of 2 or more helpers is required for the patient to complete the activity. If activity was not attempted, code reason: 7-Patient Refused. 9-Not Applicable-not attempted and the patient did not perform the activity before the current illness, exacerbation or injury. 10-Not Attempted due to Environmental Limitations-(lack of equipment, weather restraints, etc.). 88-Not Attempted due to Medical Conditions or Safety Concerns. ADL PLOF Comments Pt. was independent with daily tasks prior to this hospitalization. He drives a school bus. Does not use a walker or ambulation device. Self Care: Independent Functional Cognition: Independent Drive Self: Yes OT Current Status Subjective No pain reported. Appearance Pt. up in chair. Agrees to work with OT. Mental Status/Objective Patient Orientation: Person, Place, Time, Situation Current Glasses/Contacts: Yes Hand Dominance: Right Upper Extremity ROM WFL bilateral UE Upper Extremity Coordination Pt. demonstrates ability to touch each finger on right hand to thumb. Limited coordination with movement. However, pt. reports that it feels "weird" when he is feeding self and attempting to bring food from plate to mouth. Upper Extremity Sensation Pt. reports decreased sensation in right 5th finger. No other sensory loss noted. Upper Extremity Strength Left- 4/5 Right- 3+/5 throughout. ADL-Treatment Eating (QC): 5 (Set up. Pt. able to feed self after set up. OT did bring foam built up handles in for utensils, in case he should need them for easier grasp. Pt. verbalizes that he does not think he will. Foam grasps left in room.) On/Off Footwear (QC): 4 (SBA to doff/don slipper socks.) Pt. up in chair. Pt. is dressed but spouse states that she helped him earlier with this. Pt. verbalizes that he has not had a BM yet, and is concerned about using right hand to cleanse self. OT and pt. talked about different methods, including using left hand, or obtaining toilet tongs/aide. Pt. verbalizes understanding. Pt. is able to stand at chair side with SBA. Food tray comes and pt. is able to feed self. Noted that pt. puts pressure through right elbow on chair for support. Due to sensory loss already in 5th finger, OT applied pillow and other support under elbow to take compression off of ulnar nerve. Pt. given hand therapy sponge and educated about exercises to perform with it for continued hand strengthening and coordination. Pt. states that he has an old walker, that was obtained a long time ago. Will need new walker likely. Spouse asking about obtaining one. OT referred this to marriage and family social worker. OT educates pt. about goals and continued progress. Pt. verbalizes understanding. All needs met up in chair. Education OT Patient Education: Correct positioning, Exercise program, Modified ADL techniques, Progress toward Goal/Update tx plan, Purpose of tx/functional activities, Reviewed precautions, Rehab process, Transfer techniques Teaching Recipient: Patient, Family Teaching Methods: Demonstration, Discussion Response to Teaching: Verbalize Understanding, Return Demonstration OT Skilled Nursing Goals Skilled Nursing Goals Time Frame: Nov 22, 2020 Eating (QC): 6 Oral Hygiene (QC): 6 Toileting Hygiene (QC): 5 Upper Body Dressing (QC): 5 Lower Body Dressing (QC): 5 On/Off Footwear (QC): 5 Additional Goals: 1-Demonstrate ADL Tasks, 2-Verbalize Understanding, 3- ImproveStrength/David 1=Demonstrate adherence to instructed precautions during ADL tasks. 2=Patient will verbalize/demonstrate understanding of assistive devices/modifications for ADL. 3=Patient will improve strength/tolerance for activity to enable patient to perform ADL's. OT Education/Plan Problem List/Assessment Assessment: Decreased Activ Tolerance, Decreased UE Strength, Impaired Coordination, Impaired I ADL's, Impaired Self-Care Skills Discharge Recommendations Plan/Recommendations: Continue POC Therapy Discharge Recommendati: Home & Family, Post Acute OT Treatment Plan/Plan of Care Treatment,Training & Education: Yes Patient would benefit from OT for education, treatment and training to promote independence in ADL's, mobility, safety and/or upper extremity function for ADL's. Plan of Care: ADL Retraining, Functional Mobility, UE Funct Exercise/Act Treatment Duration: Nov 22, 2020 Frequency: 5 times per week Estimated Hrs Per Day: .25 hour per day Agreement: Yes Rehab Potential: Good Time/GCodes Start Time: 11:10 Stop Time: 11:34 Total Time Billed (hr/min): 24 Billed Treatment Time 1, EVM x 10minutes, ADL x 14minutes SHANITA SNELL OT Nov 15, 2020 15:38
[2020-11-15 15:47] VITALS: BP 128/77
[2020-11-15 19:07] VITALS: BP 130/78
[2020-11-15] MEDS ORDERED: ENOXAPARIN 40 MG/0.4 ML (LOVENOX) SYR SQ SCH (20:00)
[2020-11-15 23:15] VITALS: BP 106/71
[2020-11-16] MEDS: CLOPIDOGREL 75 MG (PLAVIX) TABLET PO SCH (08:24)
[2020-11-16] MEDS: DOCUSATE SODIUM 100 MG (COLACE) CAP PO SCH (08:24)
[2020-11-16] MEDS: FLUTICASONE NASAL SPRAY (FLONASE) 16 GM BTL NS SCH (08:24)
[2020-11-16 09:00] VITALS: BP 121/86
[2020-11-16] MEDS ORDERED: ASPIRIN E.C. 81 MG (ECOTRIN) TAB PO SCH (09:00)
--- NOTE | 2020-11-16 10:22 | Physical Therapy Daily Note ---
PT Daily Note-Current Subjective Patient agrees to PT. He reports he is going home today and will begin home health tomorrow. Mental Status Patient Orientation: Normal For Age Transfers SCALE: Activities may be completed with or without assistive devices. 9-Sboqzyqaip-zssislq completes the activity by him/herself with no assistance from a helper. 5-Set-up or Clean-up Assistance-helper sets up or cleans up; patient completes activity. [place] assists only prior to or following the activity. 4-Supervision or Touching Assistance-helper provides verbal cues and/or touching/steadying and/or contact guard assistance as patient completes activity. Assistance may be provided throughout the activity or intermittently. 3-Partial/Moderate Assistance-helper does LESS THAN HALF the effort. [place] lifts, holds or supports trunk or limbs, but provides less than half the effort. 2-Substantial/Maximal Assistance-helper does MORE THAN HALF the effort. [place] lifts or holds trunk or limbs and provides more than half the effort. 2-Jayxxlduy-enduql does ALL the effort. Patient does none of the effort to complete the activity. Or, the assistance of 2 or more helpers is required for the patient to complete the activity. If activity was not attempted, code reason: 7-Patient Refused. 9-Not Applicable-not attempted and the patient did not perform the activity before the current illness, exacerbation or injury. 10-Not Attempted due to Environmental Limitations-(lack of equipment, weather restraints, etc.). 88-Not Attempted due to Medical Conditions or Safety Concerns. Roll Left & Right (QC): 6 Sit to Lying (QC): 6 Lying to Sitting/Side of Bed(Q: 6 Sit to Stand (QC): 5 Weight Bearing Right Lower Extremity: Right Weight Bearing/Tolerated Left Lower Extremity: Left Weight Bearing/Tolerated Gait Training Does the Patient Walk?: Yes Distance: 300' x 2 Walk 10 feet (QC): 4 Walk 50 ft with 2 Turns(QC): 4 Walk 150 ft (QC): 4 Walking 10ft/uneven surface-QC: 4 Gait Assistive Device: FWW slight right LE lag with episodes of not clearing foot with self correct Stair Training Stair Training: Handrails/: 2 handrails #of Steps: 12 1 Step (curb) (QC): 4 4 Steps (QC): 4 12 Steps (QC): 4 Stairs: Pattern: Step to Balance Picking up an Object (QC): 6 (seated position) Exercises Supine Ex: LE Protocol, Quad Set, Heel Slides, Hip abd/add Supine Reps: 12 (written HEP issued) Assessment Patient instructed to perform HEP 2-3/day at 12 reps each. Patient does fatigue with activity resulting in right LE lag and foot drag with self correct. Patient continues to be a high fall risk. PT Inspection Machine Tender Goals Correction Goals PT Inspection Machine Tender Goals Time Frame: Nov 26, 2020 Roll Left & Right (QC): 6 Sit to Lying (QC): 6 Lying-Sitting on Side/Bed(QC): 6 Sit to Stand (QC): 6 Chair/Ika-ko-Kvqho Xfer(QC): 6 Toilet Transfer (QC): 6 Car Transfer (QC): 6 Does the Patient Walk: Yes Walk 10 feet (QC): 6 Walk 50ft with 2 Turns (QC): 6 Walk 150 ft (QC): 6 Walking 10ft on Uneven Surface: 6 1 Step (curb) (QC): 6 4 Steps (QC): 6 PT Plan Treatment/Plan Treatment Plan: Discontinue PT Treatment Plan: Bed Mobility, Education, Functional Activity David, Functional Strength, Gait, Safety, Therapeutic Exercise, Transfers Treatment Duration: Nov 26, 2020 Frequency: 6 times per week Estimated Hrs Per Day: .25 hour per day Patient and/or Family Agrees t: Yes Time/GCodes Time In: 1010 Time Out: 1020 Total Billed Treatment Time: 10 Total Billed Treatment 1 visit FA 10 min KOMAL CHIN PT Nov 16, 2020 10:22
[2020-11-16 12:15] VITALS: BP 121/86
== END 2020-11-16 12:45 | disposition home health service (06) | DRG 65 ==
LOC: ER 10:39 → 4TH 13:10
PROVIDERS: ADMIT Family Medicine; ATTEND Family Medicine
DX: I63.9 Cerebral infarction, unspecified (principal); G81.91 Hemiplegia, unspecified affecting right dominant side; R29.703 NIHSS score 3; E78.5 Hyperlipidemia, unspecified; Z66 Do not resuscitate; I65.22 Occlusion and stenosis of left carotid artery; Z88.6 Allergy status to analgesic agent
CPT/HCPCS: 36415; 70450; 70496; 70498; 70551; 71045; 80053; 80061; 81000; 82962; 84484; 85025; 85379; 85610; 85730; 93005; 93041; 93306; 94664

== ENCOUNTER 2020-11-28 20:57 | Emergency (ER) | payer MEDICARE, BC ==
[~2020-11-28] VITALS: Ht 172 cm; Wt 77.2 kg
[~2020-11-28 20:57] MED LIST: ASPI-1238 PO; ATOR80TA76 PO; CLOP75TA28 PO
[2020-11-28 21:26] LABS: BASOPHILS % (AUTO) 0 % (0-10); EOSINOPHILS # (AUTO) 0.1 10^3/uL (0.0-0.3); EOSINOPHILS % (AUTO) 1 % (0-10); HEMATOCRIT 40 % (40-54); HEMOGLOBIN 14.1 g/dL (13.3-17.7); LYMPHOCYTES # (AUTO) 2.7 10^3/uL (1.0-4.0); LYMPHOCYTES % (AUTO) 32 % (12-44); MEAN CORPUSCULAR HEMOGLOBIN 38 pg (25-34); MEAN CORPUSCULAR HGB CONC 35 g/dL (32-36); MEAN CORPUSCULAR VOLUME 108 fL (80-99); MEAN PLATELET VOLUME 9.7 fL (9.0-12.2); MONOCYTES # (AUTO) 0.6 10^3/uL (0.0-1.0); MONOCYTES % (AUTO) 7 % (0-12); NEUTROPHILS % (AUTO) 59 % (42-75); PLATELET COUNT 250 10^3/uL (130-400); WHITE BLOOD COUNT 8.5 10^3/uL (4.3-11.0)
[2020-11-28] MEDS ORDERED: ORPHENADRINE 60 MG/2 ML (NORFLEX) AMP (ED ONLY) IV ONE (21:30)
[2020-11-28 21:37] LABS: PROTHROMBIN TIME PATIENT 13.7 SEC (12.2-14.7)
[2020-11-28 21:38] LABS: ALANINE AMINOTRANSFERASE 18 U/L (0-55); ALBUMIN 3.8 GM/DL (3.2-4.5); ALKALINE PHOSPHATASE 53 U/L (40-136); BILIRUBIN,TOTAL 1.4 MG/DL (0.1-1.0); BUN/CREATININE RATIO 13; CALCIUM 8.7 MG/DL (8.5-10.1); CARBON DIOXIDE 25 MMOL/L (21-32); CHLORIDE 106 MMOL/L (98-107); CREATININE SERUM 0.89 MG/DL (0.60-1.30); GFR ESTIMATED > 60; GLUCOSE 116 MG/DL (70-105); POTASSIUM 4.1 MMOL/L (3.6-5.0); SODIUM 140 MMOL/L (135-145); TOTAL PROTEIN 6.8 GM/DL (6.4-8.2)
--- NOTE | 2020-11-28 21:56 | Diagnostic Imaging Report ---
PROCEDURE: CT head wo r/o stroke. TECHNIQUE: Multiple contiguous axial images were obtained through the brain without the use of intravenous contrast. Auto Exposure Controls were utilized during the CT exam to meet ALARA standards for radiation dose reduction. DATE: November 28, 2020. COMPARISON: MRI brain November 15, 2020. CT head without contrast November 13, 2020. INDICATION: 75-year-old male, headache. Hypertension. FINDINGS: There is abnormal low-attenuation in the left parietal lobe and adjacent subcortical white matter correlating with the area of acute infarct seen on MRI dated November 15, 2020. There is very high attenuation along the left frontal cortex without pronounced mass effect or midline shift. This may reflect petechial hemorrhage and evolutionary findings of infarct. There is no clear evidence of hemorrhagic transformation of infarct. If there is persistent clinical concern, recommend followup imaging. The ventricles and additional CSF spaces are normal in size and configuration for patient age. There is no epidural or subdural fluid collection. There is no mass effect or midline shift. The visualized portions of the paranasal sinuses, mastoid air cells, and middle ears are well-aerated. IMPRESSION: 1. Areas of cortical high attenuation at site of previously noted acute left parietal lobe infarct on MRI brain of November 15, 2020 most likely reflect petechial hemorrhage and evolutionary findings of infarct. There is no particularly prominent mass effect or midline shift or clear evidence of hemorrhagic transformation of infarct. If there is persistent clinical concern. Recommend followup imaging. 2. No evidence of an interval acute cardiopulmonary abnormality. Dictated by: Dictated on workstation # [id number]
--- NOTE | 2020-11-28 22:29 | ED Neurological Problem ---
General Chief Complaint: Head/Cervical Problems Stated Complaint: ELEV HR/HEADACHE Nursing Triage Note: headache/tachycardia. Nursing Sepsis Screen: No Definite Risk Source: patient, family, old records Exam Limitations: no limitations History of Present Illness Date Seen by Provider: Nov 28, 2020 Time Seen by Provider: 21:00 Initial Comments This 75-year-old gentleman presents to the emergency room with complaints of severe exacerbation of headache in the left posterior region. He was dismissed from [facility] this afternoon after having a left CEA procedure. 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 He describes no new neurologic deficits today. NIH stroke score was 0. He has very subtle measurable deficits of the right upper extremity and right lower extremity. He has a gravelly speech but his speech is clear without slurring or aphasia. He states he has had some degree of headache since the stroke but tonight he has had a severe exacerbation. He has not taken any medications for the headache. He takes aspirin and Plavix for his vascular disease. Allergies and Home Medications Allergies Coded Allergies: peach (Verified Allergy, Unknown, 11/15/20) watermelon (Verified Allergy, Unknown, 11/15/20) hydrocodone (Verified Adverse Reaction, Unknown, nausea, 11/13/20) Home Medications Aspirin 81 Mg Tablet.dr, 81 MG PO DAILY Prescribed by: OLIVIER ELUNG on 11/15/20 1304 Atorvastatin Calcium 80 Mg Tablet, 80 MG PO DAILY Prescribed by: OLIVIER LEUNG on 11/15/20 1304 Clopidogrel Bisulfate 75 Mg Tablet, 75 MG PO DAILY Prescribed by: OLIVIER LEUNG on 11/15/20 1304 Patient Home Medication List Home Medication List Reviewed: Yes Review of Systems Review of Systems Constitutional: no symptoms reported Eyes: No Symptoms Reported Ears, Nose, Mouth, Throat: no symptoms reported Respiratory: no symptoms reported Cardiovascular: see HPI Gastrointestinal: no symptoms reported Genitourinary: no symptoms reported Musculoskeletal: no symptoms reported Skin: other (Operative changes of the left neck) Psychiatric/Neurological: See HPI Endocrine: No Symptoms Reported Hematologic/Lymphatic: No Symptoms Reported Past Yismfsx-Vccdye-Nqtyod Hx Past Med/Social Hx: Reviewed and Corrections made Patient Social History Alcohol Use: Rarely Uses Smoking Status: Never a Smoker Recent Infectious Disease Expo: No Recent Hopitalizations: No Immunizations Up To Date Tetanus Booster (TDap): Unknown Seasonal Allergies Seasonal Allergies: No Past Medical History Surgeries: Yes (L CEA) Orthopedic, Tonsillectomy, Vascular Surgery (Left CEA) Respiratory: No Cardiac: Yes High Cholesterol, Hypertension, Peripheral Vascular Neurological: Yes Headaches /Migraines, Stroke Genitourinary: No Gastrointestinal: No Musculoskeletal: No Endocrine: No HEENT: No Cancer: Yes Skin Did You Recieve Any Treatments: Yes What Type of Treatment Did You: Surgical Intervention Psychosocial: No Integumentary: No Blood Disorders: No Family Medical History Cancer, CVA Physical Exam Vital Signs Vital Signs - First Documented 11/28/20 21:02 Temp 36.3 Pulse 99 Resp 18 B/P (MAP) 149/100 (116) Pulse Ox 95 O2 Delivery Room Air Capillary Refill : Less Than 3 Seconds Height, Weight, BMI Height: '" Weight: lbs. oz. kg; 26.00 BMI Method: General Appearance: WD/WN, mild distress HEENT: PERRL/EOMI, normal ENT inspection, pharynx normal Neck: other (Postoperative changes with fresh dressings on the left neck) Respiratory: lungs clear, normal breath sounds, no respiratory distress Cardiovascular: regular rate, rhythm, no edema, no murmur Gastrointestinal: non tender, soft Extremities: normal inspection, no pedal edema Neurologic/Psychiatric: chairman & chief executive officer II-XII nml as tested, no motor/sensory deficits, alert, normal mood/affect, oriented x 3 Crainal Nerves: normal hearing, PERRL, abnormal speech (Gravelly speech) Coordination/Gait: normal finger to nose (Normal tobd-fk-qgqp), normal gait Motor/Sensory: no sensory deficit, weak motor strength RUE (Very subtle), weak motor strength RLE (Very subtle) Skin: normal color, warm/dry Stroke NIH Stroke Scale Assessment Level of Consciousness: 0=Alert (0), Level of Consciousness-Questions: 0=Answers both month/age (0), LOC Commands: 0=Performs both tasks (0), Gaze: Normal (0), Visual Kauffman: 0=No visual loss (0), Facial Movement (Facial Paresis): 0=Normal symmetrical mnt (0), Motor Function-Arms Right: 0=No drift (0), Motor Function-Arms Left: 0=No drift (0), Motor Function-Legs Right: 0=No drift (0), Motor Function-Legs Left: 0=No drift (0), Limb Ataxia: 0=Absent (0), Sensory: 0=Normal:no loss (0), Best Language: 0=No aphasia (0), Dysarthria: 0=Normal (0), Extinction & Inattention: 0=No abnormality (0), Total: 0 Stroke Thrombolytic Exclusion Age 18 or Over: Yes History of CVA: No Uncontrolled Coagulation Defec: No Intracranial Hemorrhage: No Severe Hypertension: No GI or Bleed: No Subarachnoid Hemorrhage: No Intracranial Neoplasm/Aneurysm: No Oral Anticoagulants: No Surgery or Trauma: No Puncture of Non-Compressible V: No Recent CPR: No Diabetic Hemorrhagic Retinopat: No Organ Biopsy: No Recent Obstetric Delivery: No Glucose: No Significant Hepatic Dysfunctio: No NIH Stoke Scale >22: No Bacterial Endocarditis: No Pericarditis: No Improving Symptoms: No Platelets: No Progress/Results/Core Measures Results/Orders Lab Results Laboratory Tests Test 11/28/20 21:05 Range/Units White Blood Count 8.5 4.3-11.0 10^3/uL Red Blood Count 3.67 L 4.30-5.52 10^6/uL Hemoglobin 14.1 13.3-17.7 g/dL Hematocrit 40 40-54 % Mean Corpuscular Volume 108 H 80-99 fL Mean Corpuscular Hemoglobin 38 H 25-34 pg Mean Corpuscular Hemoglobin Concent 35 32-36 g/dL Red Cell Distribution Width 13.3 10.0-14.5 % Platelet Count 250 130-400 10^3/uL Mean Platelet Volume 9.7 9.0-12.2 fL Immature Granulocyte % (Auto) 0 % Neutrophils (%) (Auto) 59 42-75 % Lymphocytes (%) (Auto) 32 12-44 % Monocytes (%) (Auto) 7 0-12 % Eosinophils (%) (Auto) 1 0-10 % Basophils (%) (Auto) 0 0-10 % Neutrophils # (Auto) 5.0 1.8-7.8 10^3/uL Lymphocytes # (Auto) 2.7 1.0-4.0 10^3/uL Monocytes # (Auto) 0.6 0.0-1.0 10^3/uL Eosinophils # (Auto) 0.1 0.0-0.3 10^3/uL Basophils # (Auto) 0.0 0.0-0.1 10^3/uL Immature Granulocyte # (Auto) 0.0 0.0-0.1 10^3/uL Prothrombin Time 13.7 12.2-14.7 SEC INR Comment 1.0 0.8-1.4 Activated Partial Thromboplast Time 36 H 24-35 SEC Sodium Level 140 135-145 MMOL/L Potassium Level 4.1 3.6-5.0 MMOL/L Chloride Level 106 98-107 MMOL/L Carbon Dioxide Level 25 21-32 MMOL/L Anion Gap 9 5-14 MMOL/L Blood Urea Nitrogen 12 7-18 MG/DL Creatinine 0.89 0.60-1.30 MG/DL Estimat Glomerular Filtration Rate > 60 BUN/Creatinine Ratio 13 Glucose Level 116 H 70-105 MG/DL Calcium Level 8.7 8.5-10.1 MG/DL Corrected Calcium 8.9 8.5-10.1 MG/DL Total Bilirubin 1.4 H 0.1-1.0 MG/DL Aspartate Amino Transf (AST/SGOT) 26 5-34 U/L Alanine Aminotransferase (ALT/SGPT) 18 0-55 U/L Alkaline Phosphatase 53 40-136 U/L Total Protein 6.8 6.4-8.2 GM/DL Albumin 3.8 3.2-4.5 GM/DL My Orders Orders - ZULMA TORRES MD Orphenadrine Inj (Ed Only) (Norflex Inje (11/28/20 21:30) Ct Head Wo-R/O Stroke (11/28/20 21:17) Cbc With Automated Diff (11/28/20 21:18) Comprehensive Metabolic Panel (11/28/20 21:18) Protime With Inr (11/28/20 21:18) Partial Thromboplastin Time (11/28/20 21:18) Labetalol Injection (Normodyne Injection (11/28/20 22:30) Medications Given in ED Current Medications Medications Dose Ordered Sig/Zak Route Start Time Stop Time Status Last Admin Dose Admin Labetalol HCl 10 mg ONCE ONCE IV 11/28/20 22:30 11/28/20 22:31 DC 11/28/20 22:33 10 MG Orphenadrine Citrate 60 mg ONCE ONCE IV 11/28/20 21:30 11/28/20 21:31 DC 11/28/20 21:23 60 MG Vital Signs/I&O 11/28/20 11/28/20 21:02 23:55 Temp 36.3 36.7 Pulse 99 101 Resp 18 16 B/P (MAP) 149/100 (116) 139/98 Pulse Ox 95 98 O2 Delivery Room Air Room Air Blood Pressure Mean: 116 Progress Progress Note #1: Time: 22:24 Progress Note Patient was immediately seen and evaluated. A neurologic assessment revealed no acute deficits beyond his baseline post stroke state. NIH stroke score was 0. Patient is complaining of persistent left posterior headache. He has had some degree of headache since the stroke but he had a severe exacerbation today after coming home from the hospital. A noncontrast CT was obtained showing enhancement on the periphery of the stroke region. I discussed these findings with Dr. Bowers, radiologist. These findings were interpreted as likely post stroke petechial changes rather than acute hemorrhagic event. I have since discussed the findings with Dr. Perez, vascular surgeon on-call for Dr. Meehan at [facility]. He recommends observation in the hospital due to the exacerbation of headache with these findings. We agree that transfer to [facility] is most appropriate since [facility] does not have neurology, neur osurgery, or vascular surgery services. Patient does not respond well to opioid analgesics. Norflex was given for treatment of his pain as he had tender paraspinous muscles on the left. He has had progressive improvement of his pain since Norflex administration. Progress Note #2: Time: 22:41 Progress Note Transfer was accepted by Neris Randolph NP on behalf of Dr. Jenkins. We will treat his blood pressure with labetalol and work on transfer. We are awaiting bed assignment. Initial ECG Impression Date: Nov 28, 2020 Initial ECG Impression Time: 21:07 Initial ECG Rate: 101 Initial ECG Rhythm: S.Tach Comment Sinus tachycardia with no ST elevation or depression. No abnormal intervals or axis deviation. Diagnostic Imaging Diagonstic Imaging: CT Plain Films/CT/US/NM/MRI: head Comments CT head viewed by me and report reviewed. Discussed with the radiologist. See report below: NAME: SHAD DOWNEY MED REC#: [id number] PT STATUS: REG ER : 1945 PHYSICIAN: ZULMA TORRES MD ADMIT DATE: 11/28/20/ER Draft Date of Exam:11/28/20 CT HEAD WO-R/O STROKE PROCEDURE: CT head wo r/o stroke. TECHNIQUE: Multiple contiguous axial images were obtained through the brain without the use of intravenous contrast. Auto Exposure Controls were utilized during the CT exam to meet ALARA standards for radiation dose reduction. DATE: November 28, 2020. COMPARISON: MRI brain November 15, 2020. CT head without contrast November 13, 2020. INDICATION: 75-year-old male, headache. Hypertension. FINDINGS: There is abnormal low-attenuation in the left parietal lobe and adjacent subcortical white matter correlating with the area of acute infarct seen on MRI dated November 15, 2020. There is very high attenuation along the left frontal cortex without pronounced mass effect or midline shift. This may reflect petechial hemorrhage and evolutionary findings of infarct. There is no clear evidence of hemorrhagic transformation of infarct. If there is persistent clinical concern, recommend followup imaging. The ventricles and additional CSF spaces are normal in size and configuration for patient age. There is no epidural or subdural fluid collection. There is no mass effect or midline shift. The visualized portions of the paranasal sinuses, mastoid air cells, and middle ears are well-aerated. IMPRESSION: 1. Areas of cortical high attenuation at site of previously noted acute left parietal lobe infarct on MRI brain of November 15, 2020 most likely reflect petechial hemorrhage and evolutionary findings of infarct. There is no particularly prominent mass effect or midline shift or clear evidence of hemorrhagic transformation of infarct. If there is persistent clinical concern. Recommend followup imaging. 2. No evidence of an interval acute cardiopulmonary abnormality. Dictated on workstation # [id number] Dict: 11/28/202149 Trans: 11/28/202155 CVB [id number] Interpreted by: JOSSE BOWERS MD Departure Impression Primary Impression: Acute headache Qualified Codes: R51.9 - Headache, unspecified Additional Impressions: Status post stroke Episode of hypertension Abnormal CT scan, head Disposition: XF SHT-TRM HOSP Condition: Stable Transfer Transfer Reason: Exceeds level of care Time Spoke to Accepting Phy: 22:32 Transfer Time: 23:59 Transfer Facility: [place], [place] Method of Transfer: EMS Departure-Patient Inst. Referrals: NO,LOCAL PHYSICIAN (PCP/Family) Primary Care Physician ZULMA TORRES MD Nov 28, 2020 22:29
[2020-11-28] MEDS ORDERED: LABETALOL HCL 20 MG/4 ML VIAL IV ONE (22:30)
[2020-11-28 23:55] VITALS: BP 139/98
== END 2020-11-28 23:59 | disposition short-term general hospital (02) ==
LOC: EDUNIT# 20:57 → ER 20:59
DX: R51.9 Headache, unspecified (principal); I10 Essential (primary) hypertension; R93.0 Abnormal findings on diagnostic imaging of skull and head, not elsewhere classified; E78.00 Pure hypercholesterolemia, unspecified; Z86.73 Personal history of transient ischemic attack (TIA), and cerebral infarction without residual deficits; Z85.828 Personal history of other malignant neoplasm of skin; Z88.5 Allergy status to narcotic agent; Z79.82 Long term (current) use of aspirin
CPT/HCPCS: 36415; 70450; 80053; 85025; 85610; 85730; 93005

== ENCOUNTER 2020-12-17 16:03 | Emergency (ER) | payer BC, MEDICARE ==
[~2020-12-17] VITALS: Ht 172 cm; Wt 73.0 kg
[2020-12-17] MEDS ORDERED: ANTACID SUSP 30 ML UDC (MYLANTA) ONE (16:10)
[2020-12-17] MEDS ORDERED: LACTATED RINGERS 1,000 ML IV ONE ×2 (16:10→16:30)
[2020-12-17] MEDS ORDERED: PANTOPRAZOLE 40 MG (PROTONIX) VIAL ONE (16:10)
[2020-12-17] MEDS ORDERED: LIDOCAINE 2% VISCOUS 15 ML UDC ONE (16:10)
[2020-12-17] MEDS ORDERED: ONDANSETRON 4 MG/2 ML (SDV) Z0FRAN ONE (16:11)
--- NOTE | 2020-12-17 16:26 | ED Abdominal Pain ---
General Chief Complaint: Abdominal/GI Problems Stated Complaint: R SIDE PAIN/N/V Nursing Triage Note: abd pain started over night, rtside to midline Sepsis Screen: No Definite Risk Source of Information: Patient Exam Limitations: No Limitations History of Present Illness Date Seen by Provider: Dec 17, 2020 Time Seen by Provider: 16:10 Initial Comments The patient presents to the ER by private conveyance with his spouse and chief complaint that since late last night he was awoken with epigastric abdominal pain. Has been dealing with a lot of acid reflux is causing a cough for the past several weeks since having his carotid endarterectomy done early November. He also has had constipation and not been able to have a bowel movement for the past 3 weeks since his surgery without the use of a laxative. He does not use opiates. He did recently start an acid field servicer through his primary care doctor's office which helped most of his symptoms. He took some Gaviscon earlier today and that helped his pain. He has not had a full bowel movement for a couple days now. He has no abdominal surgeries. He is concerned about his gallbladder but does not recall what it is he ate last night. He had something to eat and drink about 8:00 this morning for breakfast. He is having some nausea but no vomiting. He had a small smear of a stool today. He had a stroke 2 months ago in October 2020 with some residual right-sided weakness and today was at physical therapy when his physical therapist encouraged him to come to the ER because he thought he might be having a gallbladder attack. Patient has a history of kidney stones and has never had his gallbladder worked up. He denies dysuria or hematuria. He denies coronary artery disease and is not having chest pain or shortness of air. He rates his pain as a 6 out of 10. No history of EGD. Echocardiogram from October [address] Plaza demonstrates an EF of 70 to 75% with grade 1 diastolic dysfunction. Primary care by Law West[facility]. Allergies and Home Medications Allergies Coded Allergies: peach (Verified Allergy, Unknown, 11/15/20) watermelon (Verified Allergy, Unknown, 11/15/20) hydrocodone (Verified Adverse Reaction, Unknown, nausea, 11/13/20) Home Medications Aspirin 81 Mg Tablet., 81 MG PO DAILY Prescribed by: OLIVIER LEUNG on 11/15/20 1304 Atorvastatin Calcium 80 Mg Tablet, 80 MG PO DAILY Prescribed by: OLIVIER LEUNG on 11/15/20 1304 Clopidogrel Bisulfate 75 Mg Tablet, 75 MG PO DAILY Prescribed by: OLIVIER LEUNG on 11/15/20 1304 Patient Home Medication List Home Medication List Reviewed: Yes Review of Systems Review of Systems Constitutional: No chills, No diaphoresis EENTM: No Blurred Vision, No Double Vision Respiratory: Denies Cough, Denies Shortness of Air Cardiovascular: Denies Chest Pain, Denies Lightheadedness Gastrointestinal: Denies See HPI, Denies Abdomen Distended; Abdominal Pain; Den ies Blood Streaked Stools; Constipated; Denies Diarrhea; Nausea; Denies Vomiting Musculoskeletal: No back pain, No joint pain Skin: No change in color, No pruritus, No rash Psychiatric/Neurological: Denies Headache, Denies Numbness All Other Systems Reviewed Negative Unless Noted: Yes Past Ngxuxfu-Bhrqln-Ikgttl Hx Patient Social History Alcohol Use: Denies Use Drug of Choice: Denies Smoking Status: Never a Smoker 2nd Hand Smoke Exposure: No Recent Infectious Disease Expo: No Recent Hopitalizations: No Immunizations Up To Date Tetanus Booster (TDap): Unknown Seasonal Allergies Seasonal Allergies: No Past Medical History Surgeries: Yes (L CEA) Orthopedic, Tonsillectomy, Vascular Surgery Respiratory: No Cardiac: Yes High Cholesterol, Hypertension, Peripheral Vascular Neurological: Yes Headaches /Migraines, Stroke Genitourinary: No Gastrointestinal: No Musculoskeletal: No Endocrine: No HEENT: No Cancer: Yes Skin Did You Recieve Any Treatments: Yes What Type of Treatment Did You: Surgical Intervention Psychosocial: No Integumentary: No Blood Disorders: No Family Medical History Cancer, CVA Physical Exam Vital Signs Vital Signs - First Documented 12/17/20 16:14 Temp 36.7 Pulse 73 Resp 20 B/P (MAP) 143/87 (105) Pulse Ox 97 O2 Delivery Room Air Capillary Refill : Less Than 3 Seconds Height/Weight/BMI Height: '" Weight: lbs. oz. kg; 24.00 BMI Method: General Appearance: WD/WN, moderate distress HEENT: PERRL/EOMI, pharynx normal Neck: full range of motion, normal inspection Respiratory: chest non-tender, lungs clear, normal breath sounds, no respiratory distress, no accessory muscle use Cardiovascular: normal peripheral pulses, regular rate, rhythm Peripheral Pulses: 2+ Radial Pulses (R), 2+ Radial Pulses (L) Gastrointestinal: normal bowel sounds, no organomegaly, guarding (Epigastric region), tenderness (Epigastric region), other (Negative for Gallagher sign, McBurney's point and Rovsing sign or other mesenteric signs) Extremities: normal range of motion, non-tender Neurologic/Psychiatric: alert, normal mood/affect, oriented x 3 Skin: normal color, warm/dry Progress/Results/Core Measures Results/Orders Lab Results Laboratory Tests Test 12/17/20 16:12 Range/Units White Blood Count 8.1 4.3-11.0 10^3/uL Red Blood Count 3.40 L 4.30-5.52 10^6/uL Hemoglobin 13.4 13.3-17.7 g/dL Hematocrit 38 L 40-54 % Mean Corpuscular Volume 110 H 80-99 fL Mean Corpuscular Hemoglobin 39 H 25-34 pg Mean Corpuscular Hemoglobin Concent 36 32-36 g/dL Red Cell Distribution Width 13.2 10.0-14.5 % Platelet Count 225 130-400 10^3/uL Mean Platelet Volume 9.5 9.0-12.2 fL Immature Granulocyte % (Auto) 0 % Neutrophils (%) (Auto) 52 42-75 % Lymphocytes (%) (Auto) 39 12-44 % Monocytes (%) (Auto) 6 0-12 % Eosinophils (%) (Auto) 2 0-10 % Basophils (%) (Auto) 0 0-10 % Neutrophils # (Auto) 4.2 1.8-7.8 10^3/uL Lymphocytes # (Auto) 3.2 1.0-4.0 10^3/uL Monocytes # (Auto) 0.5 0.0-1.0 10^3/uL Eosinophils # (Auto) 0.2 0.0-0.3 10^3/uL Basophils # (Auto) 0.0 0.0-0.1 10^3/uL Immature Granulocyte # (Auto) 0.0 0.0-0.1 10^3/uL Sodium Level 140 135-145 MMOL/L Potassium Level 4.2 3.6-5.0 MMOL/L Chloride Level 103 98-107 MMOL/L Carbon Dioxide Level 24 21-32 MMOL/L Anion Gap 13 5-14 MMOL/L Blood Urea Nitrogen 14 7-18 MG/DL Creatinine 0.90 0.60-1.30 MG/DL Estimat Glomerular Filtration Rate > 60 BUN/Creatinine Ratio 16 Glucose Level 109 H 70-105 MG/DL Calcium Level 8.9 8.5-10.1 MG/DL Corrected Calcium 8.9 8.5-10.1 MG/DL Total Bilirubin 1.7 H 0.1-1.0 MG/DL Aspartate Amino Transf (AST/SGOT) 27 5-34 U/L Alanine Aminotransferase (ALT/SGPT) 20 0-55 U/L Alkaline Phosphatase 69 40-136 U/L Troponin I < 0.028 <0.028 NG/ML C-Reactive Protein High Sensitivity 0.48 0.00-0.50 MG/DL Total Protein 7.0 6.4-8.2 GM/DL Albumin 4.0 3.2-4.5 GM/DL Lipase 29 8-78 U/L My Orders Orders - AMAIRANI VEGA Lactated Ringers (Lr 1000 Ml Iv Solution (12/17/20 16:10) Antacid Suspension (Mylanta Suspension (12/17/20 16:10) Lidocaine 2% Viscous 15 Ml (Xylocaine Vi (12/17/20 16:10) Pantoprazole Injection (Protonix Injecti (12/17/20 16:10) Ondansetron Injection (Zofran Injectio (12/17/20 16:11) Ed Iv/Invasive Line Start (12/17/20 16:16) Lactated Ringers (Lr 1000 Ml Iv Solution (12/17/20 16:30) Ondansetron Injection (Zofran Injectio (12/17/20 16:30) Lidocaine 2% Viscous 15 Ml (Xylocaine Vi (12/17/20 16:30) Antacid Suspension (Mylanta Suspension (12/17/20 16:30) Ct Abdomen/Pelvis W (12/17/20 16:16) Continuous Ekg Monitoring (12/17/20 16:16) Ekg Tracing (12/17/20 16:16) Troponin I (12/17/20 16:16) Lipase (12/17/20 16:16) Cbc With Automated Diff (12/17/20 16:16) Comprehensive Metabolic Panel (12/17/20 16:16) Hs C Reactive Protein (12/17/20 16:16) Ua Culture If Indicated (12/17/20 16:16) Iohexol Injection (Omnipaque 350 Mg/Ml 1 (12/17/20 17:00) Received Contrast (Hold Metformin- Contr (12/17/20 17:00) Sodium Chloride Flush (Catheter Flush Sy (12/17/20 17:00) Ns (Ivpb) (Sodium Chloride 0.9% Ivpb Bag (12/17/20 17:00) Medications Given in ED Current Medications Medications Dose Ordered Sig/Zak Route Start Time Stop Time Status Last Admin Dose Admin Al Hydrox/Mg Hydrox/Simethicone 30 ml ONCE ONCE PO 12/17/20 16:30 12/17/20 16:31 DC 12/17/20 16:19 30 ML Iohexol 100 ml ONCE ONCE IV 12/17/20 17:00 12/17/20 17:01 DC 12/17/20 17:09 92 ML Lactated Ringer's 1,000 ml @ 0 mls/hr Q0M ONCE IV 12/17/20 16:30 12/17/20 16:31 DC 12/17/20 16:20 0 MLS/HR Lidocaine HCl 15 ml ONCE ONCE PO 12/17/20 16:30 12/17/20 16:31 DC 12/17/20 16:21 15 ML Ondansetron HCl 4 mg ONCE ONCE IVP 12/17/20 16:30 12/17/20 16:31 DC 12/17/20 16:19 4 MG Pantoprazole 40 mg STK-MED ONCE .ROUTE 12/17/20 16:10 12/17/20 16:17 DC 12/17/20 16:20 40 MG Sodium Chloride 10 ml NEEDED PRN IV 12/17/20 17:00 12/17/20 17:09 10 ML Sodium Chloride 100 ml ONCE ONCE IV 12/17/20 17:00 12/17/20 17:01 DC 12/17/20 17:09 80 ML Vital Signs/I&O 12/17/20 16:14 Temp 36.7 Pulse 73 Resp 20 B/P (MAP) 143/87 (105) Pulse Ox 97 O2 Delivery Room Air Blood Pressure Mean: 105 Progress Progress Note : Time: 16:26 Progress Note Differential includes gastritis/GERD, obstipation, pancreatitis or gallbladder, ischemic bowel however he is on aspirin and Plavix. We will start with a GI cocktail since the patient has made it clear he does not want any narcotics. He is not a good candidate for NSAIDs. We will give him a liter of fluids and get a CT of his abdomen pelvis with IV contrast and some labs including a lipase and a urinalysis. Initial ECG Impression Date: Dec 17, 2020 Initial ECG Impression Time: 16:22 Initial ECG Rate: 82 Initial ECG Rhythm: Normal Sinus Initial ECG Intervals: Normal Initial ECG Impression: Normal, Nonspecific Changes Initial ECG Comparisson: Unchanged Comment Normal sinus rhythm without clinically relevant ST elevation or depression. There is a 1 block of elevation isolated in lead V2 without any concomitant ST elevation and or reciprocal ST depression. This is felt to be due to movement or respiratory artifact as the overall V2 trace is trending down. Diagnostic Imaging Diagonstic Imaging: CT Plain Films/CT/US/NM/MRI: abdomen, pelvis Comments NAME: SHAD [facility]OW[facility] REC#: [id number] PT STATUS: REG ER : 1945 PHYSICIAN: AMAIRANI VEGA MD ADMIT DATE: 12/17/20/ER Draft Date of Exam:12/17/20 CT ABDOMEN/PELVIS W PROCEDURE: CT abdomen and pelvis with contrast. TECHNIQUE: Multiple contiguous axial images were obtained through the abdomen and pelvis after administration of intravenous contrast. Auto Exposure Controls were utilized during the CT exam to meet ALARA standards for radiation dose reduction. All CT scans use one or more of the following dose optimizing techniques: automated exposure control, MA and/or KvP adjustment based on patient size and exam type or iterative reconstruction. INDICATION: Right upper quadrant pain, epigastric pain. FINDINGS: The gallbladder is prominent measuring a transverse diameter of 4.7 cm and a long axis length of about 9.6 cm. No appreciable radiopaque intraluminal stone is found and no appreciable pericholecystic edema. Its wall did not appear notably thickened at CT however given the dilatation, consider gallbladder ultrasound in the setting of right upper quadrant pain. There is no radiopaque stones along the course of the common hepatic or common bile duct. No bile duct dilatation. The pancreas appeared unremarkable. The kidneys are unobstructed. There is exophytic cyst off the right kidney showing no complexity and are benign. There is no hydronephrosis. The adrenals are negative. Spleen unremarkable. There is no bowel obstruction or ileus. Urinary bladder unremarkable given its degree of distention. There is no evidence for appendicitis or diverticulitis. No ascites, abscess, hematoma or acute fluid collection. The osseous structures of the abdomen and pelvis nonacute. IMPRESSION: A distention of the otherwise nonfocal gallbladder with no bile duct dilatation, no radiopaque stone. The gallbladder ultrasound may be of benefit. No other potential acute finding with benign renal cortical cysts noted. Dictated on workstation # [id number] Dict: 12/17/20 1715 Trans: 12/17/20 1730 CV [id number] Interpreted by: OLIVERIO WONG Electronically signed by: Reviewed: Reviewed by Me Departure Impression Primary Impression: Esophagitis with gastritis Disposition: HOME, SELF-CARE Condition: Stable Departure-Patient Inst. Decision time for Depature: 17:43 Referrals: LAW WESTFALL MD (PCP/Family) Primary Care Physician Patient Instructions: Gastritis (DC) Add. Discharge Instructions: Continue taking Prilosec but start taking 20 mg in the morning and 20 at night for the next 30 days. Carafate 1 tablet 30 minutes before meals and at bedtime for a total of 4 times a day. Do this for 14 days. Follow-up in the next 1 to 2 weeks with your primary care provider to discuss continued work-up of your gastritis. Zofran 1 tablet under the tongue every 6 hours as necessary for nausea or vomiting. Return to the nearest ER for intractable nausea vomiting, fever above 102.5 or intractable pain. You can use Tums, Rolaids, Maalox, Mylanta, Gaviscon etc. as necessary for breakthrough pain. Avoid greasy, spicy foods. Smaller meals more frequently may help reduce your pain. All discharge instructions reviewed with patient and/or family. Voiced understanding. Scripts Omeprazole (Omeprazole) 20 Mg Capsule.dr 20 MG PO BID for 30 Days, #60 CAP 0 Refills Prov: AMAIRANI VEGA 12/17/20 Sucralfate (Carafate) 1 Gm Tablet 1 GM PO QIDACHS for 14 Days, #56 TAB 0 Refills Prov: AMAIRANI VEGA 12/17/20 Ondansetron (Ondansetron Odt) 4 Mg Tab.rapdis 4 MG PO Q6H PRN for NAUSEA/VOMITING, #8 TAB 0 Refills Prov: AMAIRANI VEGA 12/17/20 AMAIRANI VEGA Dec 17, 2020 16:26
[2020-12-17 16:28] LABS: BASOPHILS % (AUTO) 0 % (0-10); EOSINOPHILS # (AUTO) 0.2 10^3/uL (0.0-0.3); EOSINOPHILS % (AUTO) 2 % (0-10); HEMATOCRIT 38 % (40-54); HEMOGLOBIN 13.4 g/dL (13.3-17.7); LYMPHOCYTES # (AUTO) 3.2 10^3/uL (1.0-4.0); LYMPHOCYTES % (AUTO) 39 % (12-44); MEAN CORPUSCULAR HEMOGLOBIN 39 pg (25-34); MEAN CORPUSCULAR HGB CONC 36 g/dL (32-36); MEAN CORPUSCULAR VOLUME 110 fL (80-99); MEAN PLATELET VOLUME 9.5 fL (9.0-12.2); MONOCYTES # (AUTO) 0.5 10^3/uL (0.0-1.0); MONOCYTES % (AUTO) 6 % (0-12); NEUTROPHILS # (AUTO) 4.2 10^3/uL (1.8-7.8); NEUTROPHILS % (AUTO) 52 % (42-75); PLATELET COUNT 225 10^3/uL (130-400); WHITE BLOOD COUNT 8.1 10^3/uL (4.3-11.0)
[2020-12-17] MEDS ORDERED: ONDANSETRON 4 MG/2 ML (SDV) Z0FRAN IVP ONE (16:30)
[2020-12-17] MEDS ORDERED: ANTACID SUSP 30 ML UDC (MYLANTA) PO ONE (16:30)
[2020-12-17] MEDS ORDERED: LIDOCAINE 2% VISCOUS 15 ML UDC PO ONE (16:30)
[2020-12-17 16:39] LABS: ALANINE AMINOTRANSFERASE 20 U/L (0-55); ALKALINE PHOSPHATASE 69 U/L (40-136); BILIRUBIN,TOTAL 1.7 MG/DL (0.1-1.0); BUN/CREATININE RATIO 16; CALCIUM 8.9 MG/DL (8.5-10.1); CARBON DIOXIDE 24 MMOL/L (21-32); CHLORIDE 103 MMOL/L (98-107); GFR ESTIMATED > 60; GLUCOSE 109 MG/DL (70-105); LIPASE 29 U/L (8-78); POTASSIUM 4.2 MMOL/L (3.6-5.0); SODIUM 140 MMOL/L (135-145)
[2020-12-17] MEDS ORDERED: IOHEXOL 350 MG/ML 100 ML (OMNIPAQUE 350) VIAL IV ONE (17:00)
[2020-12-17] MEDS ORDERED: CATHETER FLUSH 10 ML SYR IV PRN (17:00)
[2020-12-17] MEDS ORDERED: NS 100 ML (IVPB) BAG IV ONE (17:00)
[2020-12-17] MEDS ORDERED: HOLD METFORMIN - RECEIVED CONTRAST 20 ML VIAL IV SCH (17:00)
--- NOTE | 2020-12-17 17:30 | Diagnostic Imaging Report ---
PROCEDURE: CT abdomen and pelvis with contrast. TECHNIQUE: Multiple contiguous axial images were obtained through the abdomen and pelvis after administration of intravenous contrast. Auto Exposure Controls were utilized during the CT exam to meet ALARA standards for radiation dose reduction. All CT scans use one or more of the following dose optimizing techniques: automated exposure control, MA and/or KvP adjustment based on patient size and exam type or iterative reconstruction. INDICATION: Right upper quadrant pain, epigastric pain. FINDINGS: The gallbladder is prominent measuring a transverse diameter of 4.7 cm and a long axis length of about 9.6 cm. No appreciable radiopaque intraluminal stone is found and no appreciable pericholecystic edema. Its wall did not appear notably thickened at CT however given the dilatation, consider gallbladder ultrasound in the setting of right upper quadrant pain. There is no radiopaque stones along the course of the common hepatic or common bile duct. No bile duct dilatation. The pancreas appeared unremarkable. The kidneys are unobstructed. There is exophytic cyst off the right kidney showing no complexity and are benign. There is no hydronephrosis. The adrenals are negative. Spleen unremarkable. There is no bowel obstruction or ileus. Urinary bladder unremarkable given its degree of distention. There is no evidence for appendicitis or diverticulitis. No ascites, abscess, hematoma or acute fluid collection. The osseous structures of the abdomen and pelvis nonacute. IMPRESSION: A distention of the otherwise nonfocal gallbladder with no bile duct dilatation, no radiopaque stone. The gallbladder ultrasound may be of benefit. No other potential acute finding with benign renal cortical cysts noted. Dictated by: Dictated on workstation # [id number]
[2020-12-17] MEDS ORDERED: SUCR1TAB36 PO (17:46)
[2020-12-17] MEDS ORDERED: OMEP20CA18 PO (17:46)
[2020-12-17] MEDS ORDERED: ONDA4TAB11 PO (17:46)
[2020-12-17 17:56] VITALS: BP 132/72
== END 2020-12-17 17:51 | disposition home or self-care (01) ==
LOC: EDUNIT# 16:03 → ER 16:05
DX: K20.90 Esophagitis, unspecified without bleeding (principal); K29.70 Gastritis, unspecified, without bleeding; I10 Essential (primary) hypertension; E78.00 Pure hypercholesterolemia, unspecified; G43.909 Migraine, unspecified, not intractable, without status migrainosus; Z86.73 Personal history of transient ischemic attack (TIA), and cerebral infarction without residual deficits; Z85.820 Personal history of malignant melanoma of skin; Z79.82 Long term (current) use of aspirin; Z79.02 Long term (current) use of antithrombotics/antiplatelets; Z88.5 Allergy status to narcotic agent
CPT/HCPCS: 36415; 74177; 80053; 83690; 84484; 85025; 86141; 93005

== ENCOUNTER → 2020-12-29 | Outpatient (CLI) | payer BC ==
[~2020-12-29] MED LIST changes: +BARIUM for suspension 96% w/w (Vanilla Silq Medium Density) PO ONE; +BARIUM for suspension 98% w/w (Vanilla Silq High Density) PO ONE; +OMEP20CA18 PO; +ONDA4TAB11 PO; +SUCR1TAB36 PO
--- NOTE | 2020-12-29 09:32 | Diagnostic Imaging Report ---
INDICATION: Dysphagia. TECHNIQUE: The patient ingested effervescent crystals as well as thin and thick barium and imaging over the esophagus was performed in multiple obliquities. 1 minute and 14 seconds of fluoroscopic time was utilized. 60 images were obtained. FINDINGS: The preliminary radiograph of the abdomen is unremarkable. Diffuse tertiary contractions are identified throughout the esophagus. No discrete mass is identified. There is a small sliding-type hiatal hernia. There is mild gastroesophageal reflux demonstrated. IMPRESSION: Diffuse esophageal dysmotility and small to moderate-sized sliding-type hiatal hernia. No other significant abnormality is detected. Dictated by: Dictated on workstation # [id number]
--- NOTE | 2020-12-29 16:05 | Diagnostic Imaging Report ---
INDICATION: Dysphagia. EXAMINATION: The patient ingested thin and thick barium and serial radiographs of the abdomen were obtained. Small bowel is nondilated. Mucosal fold pattern is unremarkable. No intrinsic or extrinsic mass is seen. There is some delay in the passage of barium to the right colon. Contrast is seen within the right colon at the 6 hour patrice. Terminal ileum is unremarkable. IMPRESSION: Unremarkable small bowel study. Dictated by: Dictated on workstation # [id number]
== END ==
LOC: RAD 08:00
PROVIDERS: ATTEND Family Medicine
DX: K44.9 Diaphragmatic hernia without obstruction or gangrene (principal); R05 Cough
CPT/HCPCS: 36415; 74246; 74248; 82607; 82746

== ENCOUNTER → 2021-08-10 | Outpatient (CLI) | payer BC ==
[~2021-08-10] VITALS: Ht 172 cm; Wt 68.0 kg
[~2021-08-10] MED LIST changes: -BARIUM for suspension 96% w/w (Vanilla Silq Medium Density) PO ONE; -BARIUM for suspension 98% w/w (Vanilla Silq High Density) PO ONE; +CATHETER FLUSH 10 ML SYR IV PRN; +REGADENOSON 0.4 MG/5 ML SYR (LEXISCAN) IV ONE
[2021-08-10 12:57] VITALS: BP 153/86
--- NOTE | 2021-08-10 14:37 | Cardiology Stress Test Report ---
Stress Test Report Date of Procedure/Referring: Date of Procedure: Aug 10, 2021 PCP Chance Plaza MD Admitting Physician Hao Westfall MD Indications: HTN Baseline Heart Rate: 67 Baseline Blood Pressure: Blood Pressure Systolic: 153 Blood Pressure Diastolic: 86 Baseline Vitals Vital Signs Date Time Temp Pulse Resp B/P (MAP) Pulse Ox O2 Delivery O2 Flow Rate FiO2 08/10/21 12:57 87 153/86 (108) 96 Baseline EKG: Baseline EKG: NSR Summary After explaining the procedure to the patient, he signed a consent and then brought to the stress nuclear laboratory. Patient received 0.4 mg Lexiscan for stress test, ECG, heart rate and blood pressure were monitored continuously. Resting and stress dose of radio tracer were injected, imaging was acquired and reviewed in short axis, horizontal long axis and vertical long axis views. TID: 1.06 SSS: 6 SDS: 6 EF: 71 1. Patient tolerated Lexiscan well 2. Motion artifact affecting the quality of the images, overall there was no significant ischemia or infarction on SPECT images 3. Normal left ventricular size, EF 71% CHANCE PLAZA MD Aug 10, 2021 14:37
== END ==
LOC: CARD 11:07
PROVIDERS: ATTEND Internal Medicine Cardiovascular Disease
DX: I10 Essential (primary) hypertension (principal); I25.10 Atherosclerotic heart disease of native coronary artery without angina pectoris
CPT/HCPCS: 78452; 93017